=== PATIENT | male | born 1970 | race Caucasian/White ===

== ENCOUNTER 2017-08-03 07:53 | Emergency (ER) | payer SELFPAY ==
[2017-08-03] MEDS ORDERED: Cyclobenzaprine 10 MG Tab PO ONE (08:27)
[2017-08-03] MEDS ORDERED: HYDROmorphone 1 MG/ML Syringe IM ONE (08:27)
[2017-08-03] MEDS ORDERED: Ketorolac 60 MG/2 ML SDV IM ONE (08:27)
--- NOTE | 2017-08-03 08:32 | EDM.PDOC ---
ED HPI GENERAL MEDICAL PROBLEM - General Chief Complaint: Back Pain or Injury Stated Complaint: BACK PAIN Time Seen by Provider: 08/03/17 08:07 Source of Information: Reports: Patient History Limitations: Reports: No Limitations - History of Present Illness INITIAL COMMENTS - FREE TEXT/NARRATIVE: The patient presents with right lower back pain. This all started last week when he bent over to pickle maker a spoon. He went to the chiropractor twice without relief. He denies numbness or weakness. He has no bowel or bladder problems. He has never had back pain like this before. He has no fever, chills , cough, congestion, chest pain, abdominal pain, nausea or vomiting. Onset: Sudden Duration: Week(s): (1) Location: Reports: Back (right lower) Quality: Reports: Sharp Severity: Severe Improves with: Reports: Immobilization Worsens with: Reports: Movement Context: Reports: Activity (He was bending over to pickle maker a spoon) Associated Symptoms: Reports: No Other Symptoms Treatments DIRECTOR REHABILITATION PROGRAM: Reports: Cold Therapy, NSAIDS, Other (see below) Other Treatments DIRECTOR REHABILITATION PROGRAM: chiropractor Right Lower Back Pain Score (Numeric/FACES): 10 - Related Data Allergies Allergy/AdvReac Type Severity Reaction Status Date / Time No Known Allergies Allergy Verified 08/03/17 08:08 Home Meds: Home Meds Cyclobenzaprine [Flexeril] 10 mg PO TID PRN #20 tablet 08/03/17 [Rx] oxyCODONE HCl/Acetaminophen [Percocet 5-325 mg Tablet] 1 - 2 each PO Q6HR PRN # 20 tablet 08/03/17 [Rx] Past Medical History - Past Health History Medical/Surgical History: Denies Medical/Surgical History Social & Family History - Family History Family Medical History: Noncontributory - Tobacco Use Smoking Status *Q: Current Every Day Smoker Years of Tobacco use: 33 Packs/Tins Daily: 0.5 Second Hand Smoke Exposure: No - Caffeine Use Caffeine Use: Reports: Coffee - Recreational Drug Use Recreational Drug Use: No ED ROS GENERAL - Review of Systems Review Of Systems: See Below Constitutional: Reports: No Symptoms HEENT: Reports: No Symptoms Respiratory: Reports: No Symptoms Cardiovascular: Reports: No Symptoms Endocrine: Reports: No Symptoms GI/Abdominal: Reports: No Symptoms : Reports: No Symptoms Musculoskeletal: Reports: Back Pain (Right lower back) ED EXAM,LOWER BACK PAIN/INJURY - Physical Exam Exam: See Below Exam Limited By: No Limitations General Appearance: Alert, Mild Distress Ears: Normal External Exam Nose: Normal Inspection Head: Atraumatic, Normocephalic Neck: Normal Inspection Respiratory/Chest: No Respiratory Distress, Lungs Clear, Normal Breath Sounds Cardiovascular: Regular Rate, Rhythm, No Edema, No Murmur GI/Abdominal: Soft, Non-Tender, No Organomegaly, No Mass Back Exam: Other (Mild pain upon palpation to the right lower back) Extremities: Normal Inspection Neurological: Alert, No Motor/Sensory Deficits, Oriented x 3 Course - Vital Signs Last Recorded V/S: Last Vital Signs Temp 96.9 F 08/03/17 08:08 Pulse 77 08/03/17 08:08 Resp 18 08/03/17 08:08 BP 144/85 H 08/03/17 08:08 Pulse Ox 95 08/03/17 08:08 - Orders/Labs/Meds Orders: Active Orders 24 hr Category Date Time Status Lumbar Spine 2 or 3V [CR] Stat Exams 08/03/17 08:28 Taken Meds: Medications Discontinued Medications Generic Name Dose Route Start Last Admin Trade Name Freq PRN Reason Stop Dose Admin Cyclobenzaprine HCl 10 mg 08/03/17 08:27 08/03/17 08:48 Flexeril PO 08/03/17 08:28 10 mg ONETIME ONE Administration Hydromorphone HCl 1 mg 08/03/17 08:27 08/03/17 08:47 Dilaudid IM 08/03/17 08:28 1 mg ONETIME ONE Administration Ketorolac Tromethamine 60 mg 08/03/17 08:27 08/03/17 08:49 Toradol IM 08/03/17 08:28 60 mg ONETIME ONE Administration - Re-Assessments/Exams Free Text/Narrative Re-Assessment/Exam: 08/03/17 08:32 I ordered a shot of dilaudid 1mg IM and toradol 60mg IM. I also gave him some flexeril 10mg by mouth. 08/03/17 09:39 His x-ray shows some mild arthritis and there is a straitening of the normal curvature of his lumbar spine that may indicate muscle spasms. He feels a little better. I will give him some percocet and flexeril for the pain. He is still going to the chiropractor and I will have him follow up with Dr Phelan in our clinic. If he does not get better he may need an MRI. Departure - Departure Time of Disposition: 09:45 Disposition: Home, Self-Care 01 Condition: Good Clinical Impression: Low back pain Qualifiers: Chronicity: acute Back pain laterality: right Sciatica presence: without sciatica Qualified Code(s): M54.5 - Low back pain - Discharge Information Prescriptions: oxyCODONE HCl/Acetaminophen [Percocet 5-325 mg Tablet] 1 - 2 each PO Q6HR PRN # 20 tablet PRN Reason: Pain Cyclobenzaprine [Flexeril] 10 mg PO TID PRN #20 tablet PRN Reason: Pain Referrals: PCP,None [Primary Care Provider] - Dorothy Phelan MD [Physician] - 1 Week Forms: ED Department Discharge, ED Return to Work/School Form Additional Instructions: Use ice or heat on your back. Which ever one feels better. Take the flexeril and percocet for pain. Get rest but do not lay in bed or on the couch all day. Try to move around and keep active. Follow up with Dr Phelan next week if not better. Keep seeing your chiropractor. Please return if you are worse. - My Orders Last 24 Hours: My Active Orders 08/03/17 08:28 Lumbar Spine 2 or 3V [CR] Stat - Assessment/Plan Last 24 Hours: My Active Orders 08/03/17 08:28 Lumbar Spine 2 or 3V [CR] Stat
--- NOTE | 2017-08-04 07:05 | CR ---
Lumbar spine: AP, lateral and coned-down lateral views centered to the lumbosacral junction were obtained. Mild disc space narrowing is noted at L5-S1. Other disc spaces are maintained. Scattered endplate osteophytes are seen. Pedicles as well as transverse and spinous processes are intact. No fracture or subluxation is seen. Sacroiliac joints are within normal limits. Straightening of the normal lumbar lordotic curve is seen. Impression: 1. Mild degenerative change as noted above. 2. Straightening of the lumbar lordotic curve which can be developmental or represent muscle spasm. Diagnostic code #2 MTDD
== END 2017-08-03 10:00 | disposition home or self-care (01) ==
LOC: JD.ED 07:53
DX: M54.5 Low back pain (principal); F17.210 Nicotine dependence, cigarettes, uncomplicated
CPT/HCPCS: 72100; 96372; 99284; A9270; J1170; J1885; 99283

== ENCOUNTER 2018-02-26 03:55 | Inpatient (IN) | payer SELFPAY ==
[2018-02-26] MEDS ORDERED: Ondansetron 4 MG/2 ML SDV IVPUSH ONE (04:30)
[2018-02-26] MEDS ORDERED: Sodium Chloride 0.9% 1,000 ML IV ONE (04:30)
--- NOTE | 2018-02-26 04:47 | EDM.PDOCBH ---
ED HPI GENERAL MEDICAL PROBLEM - General Chief Complaint: Drug or Alcohol Abuse Stated Complaint: VOMITING BLOOD IN STOOL Time Seen by Provider: 02/26/18 04:09 Source of Information: Reports: Patient, Family () History Limitations: Reports: No Limitations - History of Present Illness INITIAL COMMENTS - FREE TEXT/NARRATIVE: The patient states that he is a chronic daily alcoholic, typically drinking 6-9 shots of whiskey and 8 strong beers over the course of a day, daily, for many years. His last drink was yesterday morning, 02/25/2018, after which he decided to go to . He now presents feeling shaky since yesterday afternoon, tachycardic (his heart rate is 95 here in the ED), restless and anxious tonight , and unable to sleep. He states that his eyes seemed to be "bouncing" tonight. He states that he has been vomiting every morning for the past 2 nights, then developed dry heaves tonight. He also reports that he has had bright red blood in his stools for the past 2 months. He has a chronic "smoker's" cough. No recent fever. The patient has never been to inpatient treatment. He had been in outpatient treatment many years ago. He has had 2 DUIs, but no other run-ins with the law. He has never been hospitalized due to his drinking. No history of DTs. Here in the ED, the patient's BP is somewhat elevated at 151/90, but he is otherwise hemodynamically stable and afebrile. The patient does not have a PCP, and does not recall if he has ever had a general physical examination. - Related Data Allergies Allergy/AdvReac Type Severity Reaction Status Date / Time No Known Allergies Allergy Verified 02/26/18 04:07 Home Meds: Home Meds . [No Known Home Meds] 02/26/18 [History] Past Medical History Psychiatric History: Reports: Addiction (alcohol) - Past Surgical History HEENT Surgical History: Reports: Oral Surgery ([place] teeth extraction) Social & Family History - Family History Family Medical History: Noncontributory - Tobacco Use Smoking Status *Q: Current Every Day Smoker Years of Tobacco use: 35 Packs/Tins Daily: 1 - Caffeine Use Caffeine Use: Reports: None - Alcohol Use Days Per Week of Alcohol Use: 7 Number of Drinks Per Day: 17 Total Drinks Per Week: 119 - Recreational Drug Use Recreational Drug Use: No - Living Situation & Occupation Living situation: Reports: , with Spouse Occupation: Employed ([employer]) ED ROS GENERAL - Review of Systems Review Of Systems: ROS reveals no pertinent complaints other than HPI. ED EXAM, BEHAVIORAL HEALTH - Physical Exam Exam: See Below Exam Limited By: No Limitations General Appearance: Alert, WD/WN, No Apparent Distress, Anxious (Keeps eyes closed. Is likely hyperventilating.) Eye Exam: Bilateral Eye: Normal Inspection Ears: Normal External Exam, Hearing Grossly Normal Nose: Normal Inspection, No Blood Throat/Mouth: Normal Inspection, Normal Lips, Normal Voice, No Airway Compromise Head: Atraumatic, Normocephalic Neck: Normal Inspection, Full Range of Motion Respiratory/Chest: No Respiratory Distress, Lungs Clear, Normal Breath Sounds, No Accessory Muscle Use Cardiovascular: Normal Peripheral Pulses, Regular Rate, Rhythm, No Edema, No Gallop, No JVD, No Murmur, No Rub GI/Abdominal: Normal Bowel Sounds, Soft, Non-Tender, No Organomegaly, No Distention, No Abnormal Bruit, No Mass (Male) Exam: Deferred Rectal (Males) Exam: Deferred Back Exam: Normal Inspection, Full Range of Motion, NT Extremities: Normal Inspection, Normal Range of Motion, No Pedal Edema, Normal Capillary Refill Neurological: Alert, Normal Cognition, No Motor/Sensory Deficits, Oriented x 3 Psychiatric: Other (Anxious) Skin Exam: Warm, Dry, Intact, Normal color, No rash EKG INTERPRETATION EKG Date: 02/26/18 Time: 04:37 Rhythm: NSR Rate (Beats/Min): 81 Berry: Normal P-Wave: Present QRS: Normal (Voltage c/w LVH) ST-T: Normal QT: Normal Comparison: NA - No Prior EKG COURSE, BEHAVIORAL HEALTH COMP - Course Vital Signs: Last Vital Signs Temp 36.6 C 02/26/18 04:05 Pulse 95 02/26/18 04:05 Resp 16 02/26/18 04:05 BP 151/90 H 02/26/18 04:05 Pulse Ox 99 02/26/18 04:05 Orthostatic Blood Pressure [ 132/91 Standing] Orthostatic Blood Pressure [ 148/70 Supine] Orders, Labs, Meds: Active Orders 24 hr Category Date Time Status EKG Documentation Completion [RC] STAT Care 02/26/18 04:28 Active Orthostatic Vital Signs [RC] STAT Care 02/26/18 04:28 Active Chest 1V Frontal [CR] Stat Exams 02/26/18 04:27 Taken DRUG SCREEN, URINE [URCHEM] Stat Lab 02/26/18 05:37 Ordered Magnesium Sulfate/Water [Magnesium Sulfate 2 GM in Med 02/26/18 06:07 Active Water 50 ML] 2 gm Premix Bag 1 bag IV ONETIME Medication Orders Magnesium Sulfate 2 gm/ Premix 50 mls @ 50 mls/hr IV ONETIME ONE Stop: 02/26/18 07:06 Last Admin: 02/26/18 06:26 Dose: 50 mls/hr Laboratory Tests 02/26/18 02/26/18 02/26/18 Range/Units 04:45 04:45 04:45 WBC 6.06 (4.23-9.07) K/mm3 RBC 4.49 L (4.63-6.08) M/mm3 Hgb 13.8 (13.7-17.5) gm/L Hct 40.6 (40.1-51.0) % MCV 90.4 (79.0-92.2) fl MCH 30.7 (25.7-32.2) pg MCHC 34.0 (32.2-35.5) g/dl RDW Std Deviation 40.9 (35.1-43.9) fL Plt Count 252 (163-337) K/mm3 MPV 8.4 L (9.4-12.3) fl Neutrophils % (Manual) 67 H (40-60) % Band Neutrophils % 0 (0-10) % Lymphocytes % (Manual) 22 (20-40) % Atypical Lymphs % 0 % Monocytes % (Manual) 10 (2-10) % Eosinophils % (Manual) 0 L (0.8-7.0) % Basophils % (Manual) 1 (0.2-1.2) Platelet Estimate Adequate Plt Morphology Comment Normal RBC Morph Comment Normal Puncture Site ABG pH (7.35-7.45) ABG pCO2 (35.0-45.0) mmHg ABG pO2 (80.0-100.0) mmHg ABG HCO3 (22.0-26.0) meq/L ABG O2 Saturation (96.0-97.0) % ABG Base Excess (-2-2.0) A-a Gradient mmHg O2 Delivery Device FiO2 (21.00-100.00) % Sodium 137 (136-145) mEq/L Potassium 3.3 L (3.5-5.1) mEq/L Chloride 101 (98-107) mEq/L Carbon Dioxide 24 (21-32) mEq/L Anion Gap 15.3 H (5-15) BUN 8 (7-18) mg/dL Creatinine 1.0 (0.7-1.3) mg/dL Est Cr Clr Drug Dosing 90.34 mL/min Estimated GFR (MDRD) > 60 (>60) mL/min BUN/Creatinine Ratio 8.0 L (14-18) Glucose 116 H (74-106) mg/dL Lactic Acid 1.5 (0.4-2.0) mmol/L Calcium 8.8 (8.5-10.1) mg/dL Magnesium 1.3 L (1.8-2.4) mg/dl Total Bilirubin 0.4 (0.2-1.0) mg/dL AST 118 H (15-37) U/L ALT 74 H (16-63) U/L Alkaline Phosphatase 148 H (46-116) U/L Total Protein 7.6 (6.4-8.2) g/dl Albumin 3.8 (3.4-5.0) g/dl Globulin 3.8 gm/dL Albumin/Globulin Ratio 1.0 (1-2) Urine Opiates Screen (NEGATIVE) Ur Buprenorphine Scrn (NEGATIVE) Ur Oxycodone Screen (NEGATIVE) Urine Methadone Screen (NEGATIVE) Ur Propoxyphene Screen (NEGATIVE) Ur Barbiturates Screen (NEGATIVE) Ur Tricyclics Screen (NEGATIVE) Ur Phencyclidine Scrn (NEGATIVE) Ur Amphetamine Screen (NEGATIVE) U Methamphetamines Scrn (NEGATIVE) U Benzodiazepines Scrn (NEGATIVE) U Cocaine Metab Screen (NEGATIVE) U Marijuana (THC) Screen (NEGATIVE) Ethyl Alcohol 0.00 (0.00) gm% 02/26/18 02/26/18 Range/Units 04:57 05:37 WBC (4.23-9.07) K/mm3 RBC (4.63-6.08) M/mm3 Hgb (13.7-17.5) gm/L Hct (40.1-51.0) % MCV (79.0-92.2) fl MCH (25.7-32.2) pg MCHC (32.2-35.5) g/dl RDW Std Deviation (35.1-43.9) fL Plt Count (163-337) K/mm3 MPV (9.4-12.3) fl Neutrophils % (Manual) (40-60) % Band Neutrophils % (0-10) % Lymphocytes % (Manual) (20-40) % Atypical Lymphs % % Monocytes % (Manual) (2-10) % Eosinophils % (Manual) (0.8-7.0) % Basophils % (Manual) (0.2-1.2) Platelet Estimate Plt Morphology Comment RBC Morph Comment Puncture Site Lt radial ABG pH 7.55 H (7.35-7.45) ABG pCO2 26.6 L (35.0-45.0) mmHg ABG pO2 78.0 L (80.0-100.0) mmHg ABG HCO3 23.2 (22.0-26.0) meq/L ABG O2 Saturation 97.5 H (96.0-97.0) % ABG Base Excess 2.1 H (-2-2.0) A-a Gradient 24 mmHg O2 Delivery Device Room air FiO2 21.00 (21.00-100.00) % Sodium (136-145) mEq/L Potassium (3.5-5.1) mEq/L Chloride (98-107) mEq/L Carbon Dioxide (21-32) mEq/L Anion Gap (5-15) BUN (7-18) mg/dL Creatinine (0.7-1.3) mg/dL Est Cr Clr Drug Dosing mL/min Estimated GFR (MDRD) (>60) mL/min BUN/Creatinine Ratio (14-18) Glucose (74-106) mg/dL Lactic Acid (0.4-2.0) mmol/L Calcium (8.5-10.1) mg/dL Magnesium (1.8-2.4) mg/dl Total Bilirubin (0.2-1.0) mg/dL AST (15-37) U/L ALT (16-63) U/L Alkaline Phosphatase (46-116) U/L Total Protein (6.4-8.2) g/dl Albumin (3.4-5.0) g/dl Globulin gm/dL Albumin/Globulin Ratio (1-2) Urine Opiates Screen Negative (NEGATIVE) Ur Buprenorphine Scrn Negative (NEGATIVE) Ur Oxycodone Screen Negative (NEGATIVE) Urine Methadone Screen Negative (NEGATIVE) Ur Propoxyphene Screen Negative (NEGATIVE) Ur Barbiturates Screen Negative (NEGATIVE) Ur Tricyclics Screen Negative (NEGATIVE) Ur Phencyclidine Scrn Negative (NEGATIVE) Ur Amphetamine Screen Negative (NEGATIVE) U Methamphetamines Scrn Negative (NEGATIVE) U Benzodiazepines Scrn Negative (NEGATIVE) U Cocaine Metab Screen Negative (NEGATIVE) U Marijuana (THC) Screen Presumptive positive H (NEGATIVE) Ethyl Alcohol (0.00) gm% Medications Generic Name Dose Route Start Last Admin Trade Name Freq PRN Reason Stop Dose Admin Magnesium Sulfate 2 gm/ Premix 50 mls @ 50 mls/hr 02/26/18 06:07 02/26/18 06: 26 IV 02/26/18 07:06 50 mls/hr ONETIME ONE Administration Discontinued Medications Generic Name Dose Route Start Last Admin Trade Name Freq PRN Reason Stop Dose Admin Sodium Chloride 1,000 mls @ 999 mls/hr 02/26/18 04:30 02/26/18 04:50 Normal Saline IV 02/26/18 05:30 999 mls/hr ONETIME ONE Administration Lorazepam 1 mg 02/26/18 05:22 02/26/18 05:30 Ativan IVPUSH 02/26/18 05:23 1 mg ONETIME STA Administration Ondansetron HCl 4 mg 02/26/18 04:30 02/26/18 04:51 Zofran IVPUSH 02/26/18 04:31 4 mg ONETIME ONE Administration Medical Clearance: 02/26/18 05:15 The patient is not quite orthostatic, but close. I have ordered 1 L normal saline bolus. The patient's ABG represents an acute respiratory alkalosis. I have ordered 1 mg IV Ativan. Portable chest radiograph reviewed. The x-ray source appears to have been placed excessively cephalad, creating a hathaway-shaped chest radiograph. Cardiac silhouette is within normal limits. No pulmonary vascular congestion. No pleural effusions. No focal infiltrate. No pneumothorax. Formal read per the Radiologist pending. 02/26/18 06:06 The patient's potassium is only mildly depressed at 3.3, however, his magnesium level is significantly depressed at 1.3. I will order a 2 g magnesium rider. The issues urine drug screen is positive for marijuana. I'm going to recommend admission to the hospital for treatment of alcohol withdrawal. 02/26/18 06:14 The above was discussed with the patient and his . Following 1 mg of Ativan , he is now quite calm. They are agreeable to having the patient admitted. 02/26/18 06:[address] Amezquita at 06:14. He accepts the patient for admission to the ICU. Departure - Departure Time of Disposition: 06:16 Disposition: Admitted As Inpatient 65 Condition: Fair Clinical Impression: Alcohol withdrawal, Alcoholism, Hypomagnesemia, Acute respiratory alkalosis - Discharge Information *PRESCRIPTION DRUG MONITORING PROGRAM REVIEWED*: Not Applicable *COPY OF PRESCRIPTION DRUG MONITORING REPORT IN PATIENT [place]: Not Applicable - My Orders Last 24 Hours: My Active Orders 02/26/18 04:27 Chest 1V Frontal [CR] Stat 02/26/18 04:28 EKG Documentation Completion [RC] STAT Orthostatic Vital Signs [RC] STAT 02/26/18 05:37 DRUG SCREEN, URINE [URCHEM] Stat 02/26/18 06:07 Magnesium Sulfate/Water [Magnesium Sulfate 2 GM in Water 50 ML] 2 gm Premix Bag 1 bag IV ONETIME - Assessment/Plan Last 24 Hours: My Active Orders 02/26/18 04:27 Chest 1V Frontal [CR] Stat 02/26/18 04:28 EKG Documentation Completion [RC] STAT Orthostatic Vital Signs [RC] STAT 02/26/18 05:37 DRUG SCREEN, URINE [URCHEM] Stat 02/26/18 06:07 Magnesium Sulfate/Water [Magnesium Sulfate 2 GM in Water 50 ML] 2 gm Premix Bag 1 bag IV ONETIME
[2018-02-26] MEDS ORDERED: LORazepam 2 MG/ML SDV IVPUSH STA (05:22)
[2018-02-26] MEDS ORDERED: Magnesium Sulfate/Water 2 GM in Premix Bag 1 BAG IV ONE (06:07)
[2018-02-26] MEDS ORDERED: LORazepam 2 MG/ML SDV IVPUSH PRN (07:10)
[2018-02-26] MEDS ORDERED: Metoprolol Tartrate 5 MG/5 ML SDV IVPUSH PRN (07:10)
[2018-02-26] MEDS ORDERED: hydrALAZINE 20 MG/ML SDV IVPUSH PRN (07:10)
[2018-02-26] MEDS ORDERED: LORazepam 2 MG/ML SDV IV PRN (07:11)
[2018-02-26] MEDS ORDERED: Ondansetron 4 MG/2 ML SDV IV PRN (07:11)
[2018-02-26] MEDS ORDERED: cloNIDine 0.1 MG Tab PO PRN (07:11)
[2018-02-26] MEDS ORDERED: Bisacodyl 5 MG Tab PO PRN (07:11)
[2018-02-26] MEDS ORDERED: Docusate Sodium 100 MG Cap PO PRN (07:11)
[2018-02-26] MEDS ORDERED: chlordiazePOXIDE 25 MG Cap PO PRN (07:11)
[2018-02-26] MEDS ORDERED: oxyCODONE 5 MG Tab PO PRN (07:11)
[2018-02-26] MEDS ORDERED: Haloperidol Lactate 5 MG/ML SDV IM PRN (07:11)
[2018-02-26] MEDS ORDERED: HYDROmorphone 0.5 MG/0.5 ML SYRINGE IVPUSH PRN (07:11)
[2018-02-26] MEDS ORDERED: Ibuprofen 600 MG Tab PO PRN (07:11)
[2018-02-26] MEDS ORDERED: Polyethylene Glycol 3350 Powder 17 GM Packet PO PRN (07:11)
[2018-02-26] MEDS ORDERED: Promethazine 12.5 MG in Sodium Chloride 0.9% 50 ML IV PRN (07:11)
[2018-02-26] MEDS ORDERED: Albuterol/Ipratropium 3.0-0.5 MG/3 ML Neb Soln NEB PRN (07:11)
[2018-02-26] MEDS ORDERED: Multivitamins,Therapeutic Tab PO SCH (09:00)
[2018-02-26] MEDS ORDERED: Nicotine 21 MG/24 Hr Patch TRDERM PRN (09:00)
[2018-02-26] MEDS ORDERED: Pantoprazole 40 MG Vial IV ONE (09:00)
[2018-02-26] MEDS ORDERED: Folic Acid 1 MG Tab PO SCH (09:00)
[2018-02-26] MEDS ORDERED: QUEtiapine 25 MG Tab PO ONE (09:10)
[2018-02-26] MEDS: Topiramate 25 MG Tab PO SCH ×2 (09:28→20:07)
[2018-02-26] MEDS ORDERED: Thiamine 100 MG in Sodium Chloride 0.9% 50 ML IV ONE (09:30)
[2018-02-26] MEDS ORDERED: Potassium Chloride 20 MEQ Tab.ER PO ONE (10:00)
--- NOTE | 2018-02-26 10:02 | PCM.HP ---
H&P History of Present Illness - General Date of Service: 02/26/18 Admit Problem/Dx: Admission Diagnosis/Problem Admission Diagnosis/Problem Substance abuse Source of Information: Patient, Family, Provider, Significant Other History Limitations: Reports: No Limitations - History of Present Illness Initial Comments - Free Text/Narative: This is a 47 yo white male with no past medical hx/o who presented to the emergency department with complaints of tremor, tachycardia, restlessness, anxiety, and insomnia. He also states he has been vomiting every morning for the past 2 nights then developed dry heaving afterwards. He also has had rectal bleed for the past 2 months. He denies having history of constipation. Patient carries a history of chronic alcohol dependence. He used to drink mild- moderate but for the past couple of months he has been drinking more: 6-9 shots of whiskey along with 5-6 beers of a"tall hurricane". According to his , they have been thru "a lot stress" starting for the past couple months. Patient denies any history of anxiety, depression or PTSD. He smokes one pack a day but denies illicit drug use. Patient started drinking when he was 14-15 years of age. He has been in outpatient treatment in the past but never inpatient. He was never hospitalized for anything related to alcohol up until now. No history of DTs, Alcohol Seizures, Withdrawals, or Hallucinations. On presentation to the emergency department, the patient was in severely alcohol withdrawal. His initial workup in the emergency department shows a CBC remarkable for RBC of 4.49, MPV of 8.4, neutrophils of 67%, and lymphocytes of 0%. His ABG shows pH of 7.55, PCO2 of26.6, PO2 of 78, HCO3 of 23.2, and O2 saturation of 97.5% on room air. His chemistry is significant for potassium of 3.3, anion gap of 15.3, glucose of 116, magnesium of 1.3, AST of 118, ALT of 74, and alkaline phosphatase of 148. His UDS is positive for marijuana. His JOHN level is 0. Patient is being admitted for medical treatment of alcohol withdrawal symptoms. He is full code. - Related Data Allergies/Adverse Reactions: Allergies Allergy/AdvReac Type Severity Reaction Status Date / Time No Known Allergies Allergy Verified 02/26/18 08:37 Home Medications: Home Meds . [No Known Home Meds] 02/26/18 [History] Past Medical History - Past Health History Medical/Surgical History: Denies Medical/Surgical History Psychiatric History: Reports: Addiction - Past Surgical History HEENT Surgical History: Reports: Oral Surgery Social & Family History - Family History Family Medical History: Noncontributory - Tobacco Use Smoking Status *Q: Current Every Day Smoker Years of Tobacco use: 35 Packs/Tins Daily: 1 Used Tobacco, but Quit: No Second Hand Smoke Exposure: Yes - Caffeine Use Caffeine Use: Reports: Coffee - Alcohol Use Days Per Week of Alcohol Use: 7 Number of Drinks Per Day: 4 Total Drinks Per Week: 28 - Recreational Drug Use Recreational Drug Use: No Drug Use in Last 12 Months: No - Living Situation & Occupation Living situation: Reports: , with Spouse Occupation: Employed ([employer]) H&P Review of Systems - Review of Systems: Review Of Systems: ROS reveals no pertinent complaints other than HPI. Exam - Exam Exam: See Below - Vital Signs Vital Signs: Last Vital Signs Temp 36.4 C 02/26/18 07:24 Pulse 84 02/26/18 08:01 Resp 16 02/26/18 08:01 BP 148/85 H 02/26/18 08:00 Pulse Ox 96 02/26/18 08:01 Orthostatic Blood Pressure [ 132/91 Standing] Orthostatic Blood Pressure [ 148/70 Supine] Weight: 76.022 kg - Exam General: Alert, Cooperative, Moderate Distress HEENT: Conjunctiva Clear, EACs Clear, Mucosa Moist & [place], Nares Patent, Normal Nasal Septum, Pupils Equal, Pupils Reactive. No: EOMI Neck: Supple, Trachea Midline, Full Range of Motion Lungs: Normal Respiratory Effort, Decreased Breath Sounds Cardiovascular: Regular Rate, Regular Rhythm GI/Abdominal Exam: Normal Bowel Sounds, Soft, Non-Tender, No Organomegaly, No Distention, No Abnormal Bruit, No Mass (Male) Exam: Deferred Rectal (Males) Exam: Deferred Back Exam: Normal Inspection, Full Range of Motion Extremities: Normal Inspection, Normal Range of Motion, Non-Tender, No Pedal Edema, Normal Capillary Refill Peripheral Pulses: 3+: Posterior Tibial (L), Posterior Tibial (R), Dorsalis Pedis (L), Dorsalis Pedis (R) Skin: Warm, Dry, Intact, Other (Diffuse skin tattoos) Neuro Extensive - Mental Status: Normal Mood/Affect, Normal Cognition, Memory Intact, Nl Response to Commands Neuro Extensive - Motor, Sensory, Reflexes: CN II-XII Intact (limited due to unsteadiness) Psychiatric: Alert, Anxious, Withdrawal Symptoms. No: Agitated, Suicidal Ideation, Hallucinations - Patient Data Lab Results Last 24 hrs: Laboratory Results - last 24 hr 02/26/18 02/26/18 02/26/18 Range/Units 04:45 04:45 04:45 WBC 6.06 (4.23-9.07) K/mm3 RBC 4.49 L (4.63-6.08) M/mm3 Hgb 13.8 (13.7-17.5) gm/L Hct 40.6 (40.1-51.0) % MCV 90.4 (79.0-92.2) fl MCH 30.7 (25.7-32.2) pg MCHC 34.0 (32.2-35.5) g/dl RDW Std Deviation 40.9 (35.1-43.9) fL Plt Count 252 (163-337) K/mm3 MPV 8.4 L (9.4-12.3) fl Neutrophils % (Manual) 67 H (40-60) % Band Neutrophils % 0 (0-10) % Lymphocytes % (Manual) 22 (20-40) % Atypical Lymphs % 0 % Monocytes % (Manual) 10 (2-10) % Eosinophils % (Manual) 0 L (0.8-7.0) % Basophils % (Manual) 1 (0.2-1.2) Platelet Estimate Adequate Plt Morphology Comment Normal RBC Morph Comment Normal Puncture Site ABG pH (7.35-7.45) ABG pCO2 (35.0-45.0) mmHg ABG pO2 (80.0-100.0) mmHg ABG HCO3 (22.0-26.0) meq/L ABG O2 Saturation (96.0-97.0) % ABG Base Excess (-2-2.0) A-a Gradient mmHg O2 Delivery Device FiO2 (21.00-100.00) % Sodium 137 (136-145) mEq/L Potassium 3.3 L (3.5-5.1) mEq/L Chloride 101 (98-107) mEq/L Carbon Dioxide 24 (21-32) mEq/L Anion Gap 15.3 H (5-15) BUN 8 (7-18) mg/dL Creatinine 1.0 (0.7-1.3) mg/dL Est Cr Clr Drug Dosing 90.34 mL/min Estimated GFR (MDRD) > 60 (>60) mL/min BUN/Creatinine Ratio 8.0 L (14-18) Glucose 116 H (74-106) mg/dL Lactic Acid 1.5 (0.4-2.0) mmol/L Calcium 8.8 (8.5-10.1) mg/dL Magnesium 1.3 L (1.8-2.4) mg/dl Total Bilirubin 0.4 (0.2-1.0) mg/dL AST 118 H (15-37) U/L ALT 74 H (16-63) U/L Alkaline Phosphatase 148 H (46-116) U/L Total Protein 7.6 (6.4-8.2) g/dl Albumin 3.8 (3.4-5.0) g/dl Globulin 3.8 gm/dL Albumin/Globulin Ratio 1.0 (1-2) Urine Opiates Screen (NEGATIVE) Ur Buprenorphine Scrn (NEGATIVE) Ur Oxycodone Screen (NEGATIVE) Urine Methadone Screen (NEGATIVE) Ur Propoxyphene Screen (NEGATIVE) Ur Barbiturates Screen (NEGATIVE) Ur Tricyclics Screen (NEGATIVE) Ur Phencyclidine Scrn (NEGATIVE) Ur Amphetamine Screen (NEGATIVE) U Methamphetamines Scrn (NEGATIVE) U Benzodiazepines Scrn (NEGATIVE) U Cocaine Metab Screen (NEGATIVE) U Marijuana (THC) Screen (NEGATIVE) Ethyl Alcohol 0.00 (0.00) gm% 02/26/18 02/26/18 Range/Units 04:57 05:37 WBC (4.23-9.07) K/mm3 RBC (4.63-6.08) M/mm3 Hgb (13.7-17.5) gm/L Hct (40.1-51.0) % MCV (79.0-92.2) fl MCH (25.7-32.2) pg MCHC (32.2-35.5) g/dl RDW Std Deviation (35.1-43.9) fL Plt Count (163-337) K/mm3 MPV (9.4-12.3) fl Neutrophils % (Manual) (40-60) % Band Neutrophils % (0-10) % Lymphocytes % (Manual) (20-40) % Atypical Lymphs % % Monocytes % (Manual) (2-10) % Eosinophils % (Manual) (0.8-7.0) % Basophils % (Manual) (0.2-1.2) Platelet Estimate Plt Morphology Comment RBC Morph Comment Puncture Site Lt radial ABG pH 7.55 H (7.35-7.45) ABG pCO2 26.6 L (35.0-45.0) mmHg ABG pO2 78.0 L (80.0-100.0) mmHg ABG HCO3 23.2 (22.0-26.0) meq/L ABG O2 Saturation 97.5 H (96.0-97.0) % ABG Base Excess 2.1 H (-2-2.0) A-a Gradient 24 mmHg O2 Delivery Device Room air FiO2 21.00 (21.00-100.00) % Sodium (136-145) mEq/L Potassium (3.5-5.1) mEq/L Chloride (98-107) mEq/L Carbon Dioxide (21-32) mEq/L Anion Gap (5-15) BUN (7-18) mg/dL Creatinine (0.7-1.3) mg/dL Est Cr Clr Drug Dosing mL/min Estimated GFR (MDRD) (>60) mL/min BUN/Creatinine Ratio (14-18) Glucose (74-106) mg/dL Lactic Acid (0.4-2.0) mmol/L Calcium (8.5-10.1) mg/dL Magnesium (1.8-2.4) mg/dl Total Bilirubin (0.2-1.0) mg/dL AST (15-37) U/L ALT (16-63) U/L Alkaline Phosphatase (46-116) U/L Total Protein (6.4-8.2) g/dl Albumin (3.4-5.0) g/dl Globulin gm/dL Albumin/Globulin Ratio (1-2) Urine Opiates Screen Negative (NEGATIVE) Ur Buprenorphine Scrn Negative (NEGATIVE) Ur Oxycodone Screen Negative (NEGATIVE) Urine Methadone Screen Negative (NEGATIVE) Ur Propoxyphene Screen Negative (NEGATIVE) Ur Barbiturates Screen Negative (NEGATIVE) Ur Tricyclics Screen Negative (NEGATIVE) Ur Phencyclidine Scrn Negative (NEGATIVE) Ur Amphetamine Screen Negative (NEGATIVE) U Methamphetamines Scrn Negative (NEGATIVE) U Benzodiazepines Scrn Negative (NEGATIVE) U Cocaine Metab Screen Negative (NEGATIVE) U Marijuana (THC) Screen Presumptive positive H (NEGATIVE) Ethyl Alcohol (0.00) gm% Result Diagrams: 02/27/18 06:11 02/27/18 06:11 EKG INTERPRETATION EKG Date: 02/26/18 Time: 04:37 Rhythm: NSR Rate (Beats/Min): 81 [place]: Normal P-Wave: Present QRS: Normal ST-T: Normal QT: Normal Comparison: NA - No Prior EKG Problem List Initiated/Reviewed/Updated: Yes Orders Last 24hrs: Active Orders 24 hr Category Date Time Status Admission Status [Patient Status] [ADT] Routine ADT 02/26/18 06:50 Active CIWAA Assessment [RC] Q1HR Care 02/26/18 07:11 Active Cardiac Monitoring [RC] CONTINUOUS Care 02/26/18 07:12 Active EKG Documentation Completion [RC] STAT Care 02/26/18 04:28 Active Notify Provider Consults [RC] ASDIRECTED Care 02/26/18 07:15 Active Notify Provider [RC] PRN Care 02/26/18 07:11 Active Oxygen Therapy [RC] PRN Care 02/26/18 07:11 Active RT Aerosol Therapy [RC] ASDIRECTED Care 02/26/18 07:13 Active Up ad Sindi [RC] ASDIRECTED Care 02/26/18 07:11 Active VTE/DVT Education [RC] ,21 Care 02/26/18 07:11 Active Vital Signs [RC] Q4H Care 02/26/18 07:11 Active Consult for Substance Abuse [CONS] Routine Cons 02/26/18 09:02 Active Consult to Case Management [CONS] Routine Cons 02/26/18 07:11 Active Consult to Physician [CONS] Routine Cons 02/26/18 07:11 Active Consult to Grain Trimmer [CONS] Routine Cons 02/26/18 07:11 Active Consult to Spiritual Care [CONS] Routine Cons 02/26/18 07:11 Active Regular Diet [DIET] Diet 02/26/18 Breakfast Active Chest 1V Frontal [CR] Stat Exams 02/26/18 04:27 Taken CBC WITH AUTO DIFF [HEME] AM Lab 02/27/18 05:11 Ordered CBC WITH AUTO DIFF [HEME] AM Lab 02/28/18 05:11 Ordered CBC WITH AUTO DIFF [HEME] AM Lab 03/01/18 05:11 Ordered CBC WITH AUTO DIFF [HEME] AM Lab 03/02/18 05:11 Ordered COMPREHENSIVE METABOLIC PN,CMP [CHEM] AM Lab 02/27/18 05:11 Ordered COMPREHENSIVE METABOLIC PN,CMP [CHEM] AM Lab 02/28/18 05:11 Ordered COMPREHENSIVE METABOLIC PN,CMP [CHEM] AM Lab 03/01/18 05:11 Ordered DRUG SCREEN, URINE [URCHEM] Stat Lab 02/26/18 05:37 Ordered MAGNESIUM [CHEM] AM Lab 02/27/18 05:11 Ordered MAGNESIUM [CHEM] AM Lab 02/28/18 05:11 Ordered MAGNESIUM [CHEM] AM Lab 03/01/18 05:11 Ordered Albuterol/Ipratropium [DuoNeb 3.0-0.5 MG/3 ML] Med 02/26/18 07:11 Active 3 ml NEB Q4H PRN Bisacodyl [Dulcolax] Med 02/26/18 07:11 Active 5 mg PO DAILY PRN Docusate Sodium [Colace] Med 02/26/18 07:11 Active 100 mg PO BID PRN Docusate Sodium/Sennosides [Senna Plus] Med 02/26/18 07:11 Active 1 tab PO BID PRN Famotidine [Pepcid] Med 02/26/18 21:00 Active 20 mg PO Q12H Folic Acid Med 02/26/18 09:00 Active 1 mg PO DAILY HYDROmorphone [Dilaudid] Med 02/26/18 07:11 Active 0.25 mg IVPUSH Q2H PRN Haloperidol Lactate [Haldol] Med 02/26/18 07:11 Active 2 mg IM Q4H PRN Ibuprofen [Motrin] Med 02/26/18 07:11 Active 600 mg PO Q6H PRN LORazepam [Ativan] Med 02/26/18 07:11 Active 1 - 3 mg IV Q6H PRN LORazepam [Ativan] Med 02/26/18 07:10 Active 2 mg IVPUSH Q4H PRN Magnesium Rep Pharmacy to Dose [Pharmacy to Dose - Med 02/26/18 07:15 Active Magnesium Replacement] 0 dose .XX ASDIRECTED PRN Metoprolol Tartrate [Lopressor] Med 02/26/18 07:10 Active 5 mg IVPUSH Q4H PRN Multivitamins,Therapeutic [Thera] Med 02/26/18 09:00 Active 1 each PO DAILY Nicotine [Habitrol] Med 02/26/18 09:00 Active 21 mg TRDERM DAILY PRN Ondansetron [Zofran] Med 02/26/18 07:11 Active 4 mg IV Q6H PRN Polyethylene Glycol 3350 [MiraLAX] Med 02/26/18 07:11 Active 17 gm PO DAILY PRN Potassium Rep Pharmacy to Dose [Pharmacy to Dose - Med 02/26/18 07:15 Active Potassium Replacement] 0 dose .XX ASDIRECTED PRN Promethazine [Phenergan] 12.5 mg Med 02/26/18 07:11 Active Sodium Chloride 0.9% [Normal Saline] 50 ml IV Q6H QUEtiapine [SEROquel] Med 02/26/18 21:00 Active 50 mg PO BEDTIME Remove Patch Med 02/27/18 09:00 Active 0 ea TRDERM DAILY Sodium Chloride 0.9% [Normal Saline] 1,000 ml Med 02/26/18 09:45 Active IV ASDIRECTED Thiamine [Vitamin B-1] Med 02/27/18 09:00 Active 100 mg PO DAILY Topiramate [Topamax] Med 02/26/18 09:00 Active 25 mg PO BID chlordiazePOXIDE [Librium] Med 02/26/18 07:11 Active 25 mg PO Q8H PRN cloNIDine [Catapres] Med 02/26/18 07:11 Active 0.1 mg PO Q4H PRN hydrALAZINE [Apresoline] Med 02/26/18 07:10 Active 20 mg IVPUSH Q4H PRN oxyCODONE Med 02/26/18 07:11 Active 5 mg PO Q4H PRN Seizure Precautions [OM.PC] Routine Oth 02/26/18 07:11 Ordered Sequential Compression Device [OM.PC] Per Unit Routine Oth 02/26/18 07:12 Ordered Resuscitation Status Routine Resus Stat 02/26/18 07:11 Ordered Medication Orders Albuterol/Ipratropium (Duoneb 3.0-0.5 Mg/3 Ml) 3 ml NEB Q4H PRN PRN Reason: Shortness Of Breath/wheezing Bisacodyl (Dulcolax) 5 mg PO DAILY PRN PRN Reason: Constipation Chlordiazepoxide HCl (Librium) 25 mg PO Q8H PRN PRN Reason: Withdrawal Symptoms Clonidine HCl (Catapres) 0.1 mg PO Q4H PRN PRN Reason: Agitation Docusate Sodium (Colace) 100 mg PO BID PRN PRN Reason: Constipation Famotidine (Pepcid) 20 mg PO Q12H IRAIS Folic Acid (Folic Acid) 1 mg PO DAILY [facility] Stop: 02/28/18 09:01 Last Admin: 02/26/18 09:29 Dose: 1 mg Haloperidol Lactate (Haldol) 2 mg IM Q4H PRN PRN Reason: Agitation Hydralazine HCl (Apresoline) 20 mg IVPUSH Q4H PRN PRN Reason: Hypertension Last Admin: 02/26/18 09:37 Dose: 20 mg Hydromorphone HCl (Dilaudid) 0.25 mg IVPUSH Q2H PRN PRN Reason: Pain (severe 7-10) Promethazine HCl 12.5 mg/ (Sodium Chloride) 50.5 mls @ 100 mls/hr IV Q6H PRN PRN Reason: Nausea/Vomiting Sodium Chloride (Normal Saline) 1,000 mls @ 125 mls/hr IV ASDIRECTED IRAIS Ibuprofen (Motrin) 600 mg PO Q6H PRN PRN Reason: Pain (moderate 4-6) Lorazepam (Ativan) 2 mg IVPUSH Q4H PRN PRN Reason: Seizures Lorazepam (Ativan) 1 - 3 mg IV Q6H PRN; Protocol PRN Reason: Withdrawal Symptoms Magnesium Sulfate (Pharmacy To Dose - Magnesium Replacement) 0 dose .XX ASDIRECTED PRN PRN Reason: RX TO WATCH MAG LEVELS Metoprolol Tartrate (Lopressor) 5 mg IVPUSH Q4H PRN PRN Reason: Tachycardia Miscellaneous Information (Remove Patch) 0 ea TRDERM DAILY [facility] Multivitamins (Thera) 1 each PO DAILY [facility] Stop: 02/28/18 09:01 Last Admin: 02/26/18 09:28 Dose: 1 each Nicotine (Habitrol) 21 mg TRDERM DAILY PRN PRN Reason: Nicotine Dependence Last Admin: 02/26/18 09:31 Dose: 21 mg Ondansetron HCl (Zofran) 4 mg IV Q6H PRN PRN Reason: Nausea/Vomiting Oxycodone HCl (Oxycodone) 5 mg PO Q4H PRN PRN Reason: Pain (moderate 4-6) Polyethylene Glycol (Miralax) 17 gm PO DAILY PRN PRN Reason: Constipation Potassium Chloride (Pharmacy To Dose - Potassium Replacement) 0 dose .XX ASDIRECTED PRN PRN Reason: RX TO WATCH K LEVELS Quetiapine Fumarate (Seroquel) 50 mg PO BEDTIME IRAIS Senna/Docusate Sodium (Senna Plus) 1 tab PO BID PRN PRN Reason: Constipation Thiamine HCl (Vitamin B-1) 100 mg PO DAILY IRAIS Topiramate (Topamax) 25 mg PO BID IRAIS Last Admin: 02/26/18 09:28 Dose: 25 mg Assessment/Plan Comment:: Assessment/Plan: Acute: ETOH Withdrawal Symptoms - CIWA protocol: CIWA score is markedly elevated - Ativan/Librium/Clonidine/Topamax/Seroquel - Hydralazine and IVP BB for HR/BP control - Ativan for Abortive Seizure and Withdrawal Symptoms Substance Abuse - UDS: pos for THC - Counseled on Substance Abuse - SA/Psych consult Tobacco Dependence - Smokes 1ppd - Nicotine patch - Counseled on Smoking Cessation Chronic ETOH Use/Dependence - CIWA protocol - SA consult Electrolytes Abnormality - Hypokalemia - K 3.3 - 2/2 Poor nutritional state and oral intake - Replete and monitor - Hypomagnesemia - Mg 1.3 - 2/2 Poor nutritional state and oral intake - Replete and monitor Plan: Admit to ICU MVI, Folic Acid and Thiamine CIWA protocol Ativan for Abortive Seizure and Withdrawal Symptoms PRN meds for Withdrawal Symptoms Aspiration/Seizure Precautions SW/CM d/c planning SA/Psych consult Code Status: 1
[2018-02-26] MEDS: Sodium Chloride 0.9% 1,000 ML IV SCH ×2 (10:13→18:12)
--- NOTE | 2018-02-26 11:19 | CR ---
Chest: Portable view of the chest was obtained. Comparison: No prior chest x-ray. Heart size and mediastinum are normal. Lungs are clear. Bony structures are grossly intact. Impression: 1. Nothing acute is identified on portable chest x-ray. Diagnostic code #1
[2018-02-26] MEDS ORDERED: chlordiazePOXIDE 25 MG Cap PO ONE (12:24)
[2018-02-26] MEDS ORDERED: diphenhydrAMINE 50 MG/ML SDV IVPUSH ONE (12:24)
[2018-02-26] MEDS ORDERED: QUEtiapine 25 MG Tab PO SCH (21:00)
[2018-02-26] MEDS ORDERED: Famotidine 20 MG Tab PO SCH (21:00)
--- NOTE | 2018-02-26 21:49 | CONS ---
CONSULTING PHYSICIAN: Alberto Rodríguez MD DATE OF CONSULTATION: 02/26/2018 PSYCHIATRIC EVALUATION This is a 60-minute inpatient consult. IDENTIFICATION: The patient is a 47-year-old male who was admitted to the inpatient MICU at [facility] in [place], [place]. He is seen for psychiatric evaluation. CHIEF COMPLAINT: "I had shakes. I decided to quit drinking." HISTORY OF PRESENT ILLNESS: The patient is a 47-year-old male who reports that he has had a longstanding history of alcohol dependence and he states that he decided to quit. He stated most recently he was drinking about "6 to 9 shots of hard liquor and about 5 Hurricane beers." The patient states that he had been trying to quit on his own for the past few days, but he kept getting shakes and he also states "I was shitting out blood" from his rectum. He states "I just don't want feel to like this anymore" and wants to get sober. His became concerned and brought him into the emergency room for evaluation and he was admitted to the MICU with symptoms of withdrawal. The patient states he has started going to AA meetings and he wants to continue going to the AA meetings once he is medically stabilized. He does not feel that he needs inpatient treatment at this point in time. He denies any illicit substance use complicating his clinical picture. He denies any past psychiatric history and he states "I am pretty happy" in terms of the decision he made and he does not feel that he is drinking because he is depressed, he just states that he drinks because he has an alcohol dependency issue. He denies any suicidal or homicidal. He denies any psychotic, delusional, or paranoid symptoms. MEDICATIONS: At the time of presentation, none. ALLERGIES: No known drug allergies. PAST MEDICAL HISTORY: The patient denies. REVIEW OF SYSTEMS: Negative for any acute difficulties or complications currently with his GI, , pulmonary, cardiac, endocrine, immune, musculoskeletal, blood, or nervous systems. FAMILY PSYCHIATRIC AND CD HISTORY: The patient reports father may have had a history of alcoholism. PAST PSYCHIATRIC AND CD HISTORY: The patient denies any previous psychiatric hospitalizations or chemical dependency treatments. He has been going to AA lately. He has 2 DWIs in the past. Denies any previous suicide attempts, eating disorder history, or past psychiatric medication history. SOCIAL HISTORY: The patient was born in [place], [place], raised in [place], [place]. He is the 3rd of 4 siblings, having 1 fraternal twin who was 10 minutes later than him and has 2 sisters and 1 brother. The patient's parents were throughout childhood and adolescence. Father's career, in the army for 28 years. Mother was a homemaker. The patient's highest level of education is a GED. The patient currently works at [employer]. He has been twice. First marriage was for about 6 months. He was for many years and he has had a 2nd marriage now for about 4 years. 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 The patient lives in [place] with his . He has children, which are grown from other relationships. He denies any prior service. He is currently on probation for the next 3 months for his last DWI. He is a Islam and he is Spiritism in terms of his jayce formation. He enjoys watching sports. MENTAL STATUS EXAM: The patient is a 47-year-old white male in no apparent distress. Speech is of regular rate and rhythm. The patient is cognitively oriented. Psychomotor activity is within normal limits. There is no abnormal motor movements or tics observed. Gait and station are not observed. This patient is lying in bed during the inpatient consult. There is no behavioral or stated evidence of acute suicidal or homicidal ideation or acute psychotic, delusional, or paranoid symptoms. Thought processes are organized. There are no manic symptoms or loose associations evident. Judgment and insight appear unimpaired at this point in time. Motivation for help appears good. VITALS: At the time of consult 127/99, 89, 16, 98.1 degrees. IMPRESSION: 1. [place] I: a. Alcohol dependence, F10.20. b. Depression, NOS, F32.9. 2. [place] II: None. 3. [place] III: a. Symptoms of alcohol withdrawal. b. Bleeding from rectum, currently being treated. 4. [place] IV: Severe. 5. [place] V: 50 to 55. PLAN: 1. Sobriety. 2. AA rep to visit the patient while on unit. 3. Pastoral guidance. 4. Ativan per [facility] protocol. 5. Topamax 25 mg b.i.d. for seizure prophylaxis and anxiety reduction while on unit. 6. Seroquel 50 mg at bedtime for clarity of thought and anxiety reduction as well as sleep initiation and maintenance while patient is on unit. 7. Librium 25 mg q.8 hours p.r.n. 8. Thiamine supplementation. 9. Folic acid supplementation. 10.Recommend the patient follow up with outpatient primary MD, when he is medically stabilized and discharge back to the community. 11.If the patient is unable to maintain sobriety on his own and with the assistance of AA, would recommend inpatient and outpatient chemical dependency resources be made available to the patient going forward in that event. 12.We will continue to follow up with the patient on an as-needed basis while he remains on the inpatient MICU. 13.We will follow up with the patient sooner if any complications in the interim. 14.Other medications as dosed and prescribed by the patient's primary inpatient medical treatment team. 15.Crisis plan is in place. SETH /[id number]
[2018-02-27] MEDS: Sodium Chloride 0.9% 1,000 ML IV SCH (02:05)
--- NOTE | 2018-02-27 07:41 | PCM.DCSUM1 ---
Discharge Summary - Hospital Course Brief History: This is a 47 yo white male with no past medical hx/o who presented to the emergency department with complaints of tremor, tachycardia, restlessness, anxiety, and insomnia. He also states he has been vomiting every morning for the past 2 nights then developed dry heaving afterwards. He also has had rectal bleed for the past 2 months. He denies having history of constipation. Patient carries a history of chronic alcohol dependence. He used to drink mild-moderate but for the past couple of months he has been drinking more: 6-9 shots of whiskey along with 5-6 beers of a"tall hurricane". According to his , they have been thru "a lot stress" starting for the past couple months. Patient denies any history of anxiety, depression or PTSD. He smokes one pack a day but denies illicit drug use. Patient started drinking when he was 14-15 years of age. He has been in outpatient treatment in the past but never inpatient. He was never hospitalized for anything related to alcohol up until now. No history of DTs, Alcohol Seizures, Withdrawals, or Hallucinations. On presentation to the emergency department, the patient was in severely alcohol withdrawal. His initial workup in the emergency department shows a CBC remarkable for RBC of 4.49, MPV of 8.4, neutrophils of 67%, and lymphocytes of 0 %. His ABG shows pH of 7.55, PCO2 of26.6, PO2 of 78, HCO3 of 23.2, and O2 saturation of 97.5% on room air. His chemistry is significant for potassium of 3.3, anion gap of 15.3, glucose of 116, magnesium of 1.3, AST of 118, ALT of 74 , and alkaline phosphatase of 148. His UDS is positive for marijuana. His JOHN level is 0. Patient is being admitted for medical treatment of alcohol withdrawal symptoms. He is full code. Diagnosis: Stroke: No Modified [place] Scale: No Symptoms at All Modified [place] Scale Score: 0 - Discharge Data Discharge Date: 02/27/18 Discharge Disposition: Against Medical Advice 07 Condition: Good - Discharge Diagnosis/Problem(s) (1) Alcohol withdrawal SNOMED Code(s): 539972319 ICD Code: F10.239 - ALCOHOL DEPENDENCE WITH WITHDRAWAL, UNSPECIFIED Status : Acute (2) Substance abuse SNOMED Code(s): 74344270 ICD Code: F19.10 - OTHER PSYCHOACTIVE SUBSTANCE ABUSE, UNCOMPLICATED Status : Acute (3) Tobacco dependence SNOMED Code(s): 13652191 ICD Code: F17.200 - NICOTINE DEPENDENCE, UNSPECIFIED, UNCOMPLICATED Status : Acute (4) Chronic alcohol dependence, continuous SNOMED Code(s): 693459066 ICD Code: F10.20 - ALCOHOL DEPENDENCE, UNCOMPLICATED Status: Acute (5) Hypokalemia SNOMED Code(s): 26985367 ICD Code: E87.6 - HYPOKALEMIA Status: Acute (6) Hypomagnesemia SNOMED Code(s): 672306112 ICD Code: E83.42 - HYPOMAGNESEMIA Status: Acute (7) Depression SNOMED Code(s): 79698548 ICD Code: F32.9 - MAJOR DEPRESSIVE DISORDER, SINGLE EPISODE, UNSPECIFIED Status: Acute Qualifiers: Depression Type: unspecified Qualified Code(s): F32.9 - Major depressive disorder, single episode, unspecified - Patient Summary/Data Operative Procedure(s) Performed: None Complications: Unknown he left AMA Consults: Consultations 02/26/18 07:11 Consult to Case Management [CONS] Routine Consult to Physician [CONS] Routine Consult to Hotel Desk Clerk [CONS] Routine Consult to Spiritual Care [CONS] Routine 02/26/18 09:02 Consult for Substance Abuse [CONS] Routine Hospital Course: Patient was admitted for medical management of alcohol withdrawal symptoms. He was placed on CIWA protocol to improvement his symptoms. Unfortunately, he left this morning on his own accord against medical advice. - Patient Instructions Other/Special Instructions: - Patient left AMA - Discharge Plan *PRESCRIPTION DRUG MONITORING PROGRAM REVIEWED*: Not Applicable *COPY OF PRESCRIPTION DRUG MONITORING REPORT IN PATIENT KALIN: Not Applicable Home Medications: Home Meds . [No Known Home Meds] 02/26/18 [History] Patient Handouts: Steps to Quit Smoking Referrals: PCP,None [Primary Care Provider] - - Discharge Summary/Plan Comment Discharge Summary/Plan Comment: Patient left AMA - General Info Date of Service: 02/27/18 Admission Dx/Problem (Free Text: Admission Diagnosis/Problem Admission Diagnosis/Problem Substance abuse Subjective Update: Follow Up - Review of Systems Systems Review Comment: ROS unable to obtain, he left AMA - Patient Data Vitals - Most Recent: Last Vital Signs Temp 36.8 C 02/27/18 03:52 Pulse 65 02/27/18 03:52 Resp 16 02/27/18 03:52 BP 146/98 H 02/27/18 03:52 Pulse Ox 96 02/27/18 03:52 Orthostatic Blood Pressure [ 132/91 Standing] Orthostatic Blood Pressure [ 148/70 Supine] Weight - Most Recent: 77.111 kg I&O - Last 24 hours: Intake & Output 02/26/18 02/27/18 02/27/18 22:59 06:59 14:59 Intake Total 1295 1753 Output Total 100 700 Balance 1195 1053 Lab Results - Last 24 hrs: Laboratory Results - last 24 hr 02/27/18 Range/Units 06:11 WBC 3.85 L (4.23-9.07) K/mm3 RBC 4.10 L (4.63-6.08) M/mm3 Hgb 12.7 L (13.7-17.5) gm/L Hct 38.7 L (40.1-51.0) % MCV 94.4 H (79.0-92.2) fl MCH 31.0 (25.7-32.2) pg MCHC 32.8 (32.2-35.5) g/dl RDW Std Deviation 43.0 (35.1-43.9) fL Plt Count 196 (163-337) K/mm3 MPV 8.8 L (9.4-12.3) fl Neut % (Auto) 66.8 (34.0-67.9) % Lymph % (Auto) 22.9 (21.8-53.1) % [place] % (Auto) 6.8 (5.3-12.2) % Eos % (Auto) 2.9 (0.8-7.0) Baso % (Auto) 0.3 (0.1-1.2) % Neut # (Auto) 2.58 (1.78-5.38) K/mm3 Lymph # (Auto) 0.88 L (1.32-3.57) K/mm3 [place] # (Auto) 0.26 L (0.30-0.82) K/mm3 Eos # (Auto) 0.11 (0.04-0.54) K/mm3 Baso # (Auto) 0.01 (0.01-0.08) K/mm3 Med Orders - Current: Current Medications Discontinued Medications Albuterol/Ipratropium (Duoneb 3.0-0.5 Mg/3 Ml) 3 ml NEB Q4H PRN PRN Reason: Shortness Of Breath/wheezing Bisacodyl (Dulcolax) 5 mg PO DAILY PRN PRN Reason: Constipation Chlordiazepoxide HCl (Librium) 25 mg PO Q8H PRN PRN Reason: Withdrawal Symptoms Chlordiazepoxide HCl (Librium) 50 mg PO ONETIME ONE Stop: 02/26/18 12:25 Last Admin: 02/26/18 13:04 Dose: 50 mg Clonidine HCl (Catapres) 0.1 mg PO Q4H PRN PRN Reason: Agitation Diphenhydramine HCl (Benadryl) 50 mg IVPUSH ONETIME ONE Stop: 02/26/18 12:25 Last Admin: 02/26/18 13:04 Dose: 50 mg Docusate Sodium (Colace) 100 mg PO BID PRN PRN Reason: Constipation Famotidine (Pepcid) 20 mg PO Q12H [facility] Last Admin: 02/26/18 20:07 Dose: 20 mg Folic Acid (Folic Acid) 1 mg PO DAILY [facility] Stop: 02/28/18 09:01 Last Admin: 02/26/18 09:29 Dose: 1 mg Haloperidol Lactate (Haldol) 2 mg IM Q4H PRN PRN Reason: Agitation Hydralazine HCl (Apresoline) 20 mg IVPUSH Q4H PRN PRN Reason: Hypertension Last Admin: 02/26/18 09:37 Dose: 20 mg Hydromorphone HCl (Dilaudid) 0.25 mg IVPUSH Q2H PRN PRN Reason: Pain (severe 7-10) Sodium Chloride (Normal Saline) 1,000 mls @ 999 mls/hr IV ONETIME ONE Stop: 02/26/18 05:30 Last Admin: 02/26/18 04:50 Dose: 999 mls/hr Magnesium Sulfate 2 gm/ Premix 50 mls @ 50 mls/hr IV ONETIME ONE Stop: 02/26/18 07:06 Last Admin: 02/26/18 06:26 Dose: 50 mls/hr Promethazine HCl 12.5 mg/ (Sodium Chloride) 50.5 mls @ 100 mls/hr IV Q6H PRN PRN Reason: Nausea/Vomiting Thiamine HCl 100 mg/ Sodium (Chloride) 51 mls @ 100 mls/hr IV ONETIME ONE Stop: 02/26/18 10:00 Last Admin: 02/26/18 09:44 Dose: 100 mls/hr Sodium Chloride (Normal Saline) 1,000 mls @ 125 mls/hr IV ASDIRECTED IRAIS Last Admin: 02/27/18 02:05 Dose: 125 mls/hr Ibuprofen (Motrin) 600 mg PO Q6H PRN PRN Reason: Pain (moderate 4-6) Lorazepam (Ativan) 1 mg IVPUSH ONETIME STA Stop: 02/26/18 05:23 Last Admin: 02/26/18 05:30 Dose: 1 mg Lorazepam (Ativan) 2 mg IVPUSH Q4H PRN PRN Reason: Seizures Lorazepam (Ativan) 1 - 3 mg IV Q6H PRN; Protocol PRN Reason: Withdrawal Symptoms Magnesium Sulfate (Pharmacy To Dose - Magnesium Replacement) 0 dose .XX ASDIRECTED PRN PRN Reason: RX TO WATCH MAG LEVELS Metoprolol Tartrate (Lopressor) 5 mg IVPUSH Q4H PRN PRN Reason: Tachycardia Last Admin: 02/26/18 11:17 Dose: 5 mg Miscellaneous Information (Remove Patch) 0 ea TRDERM DAILY [facility] Multivitamins (Thera) 1 each PO DAILY [facility] Stop: 02/28/18 09:01 Last Admin: 02/26/18 09:28 Dose: 1 each Nicotine (Habitrol) 21 mg TRDERM DAILY PRN PRN Reason: Nicotine Dependence Last Admin: 02/26/18 09:31 Dose: 21 mg Ondansetron HCl (Zofran) 4 mg IVPUSH ONETIME ONE Stop: 02/26/18 04:31 Last Admin: 02/26/18 04:51 Dose: 4 mg Ondansetron HCl (Zofran) 4 mg IV Q6H PRN PRN Reason: Nausea/Vomiting Oxycodone HCl (Oxycodone) 5 mg PO Q4H PRN PRN Reason: Pain (moderate 4-6) Pantoprazole Sodium (Protonix Iv) 40 mg IV ONETIME ONE Stop: 02/26/18 09:01 Last Admin: 02/26/18 09:28 Dose: 40 mg Polyethylene Glycol (Miralax) 17 gm PO DAILY PRN PRN Reason: Constipation Potassium Chloride (Pharmacy To Dose - Potassium Replacement) 0 dose .XX ASDIRECTED PRN PRN Reason: RX TO WATCH K LEVELS Potassium Chloride (Klor-Con M20) 40 meq PO ONETIME ONE Stop: 02/26/18 10:01 Last Admin: 02/26/18 10:10 Dose: 40 meq Quetiapine Fumarate (Seroquel) 50 mg PO ONETIME ONE Stop: 02/26/18 09:11 Last Admin: 02/26/18 09:28 Dose: 50 mg Quetiapine Fumarate (Seroquel) 50 mg PO BEDTIME [facility] Last Admin: 02/26/18 20:07 Dose: 50 mg Senna/Docusate Sodium (Senna Plus) 1 tab PO BID PRN PRN Reason: Constipation Thiamine HCl (Vitamin B-1) 100 mg PO DAILY [facility] Topiramate (Topamax) 25 mg PO BID [facility] Last Admin: 02/26/18 20:07 Dose: 25 mg - Exam Physical Findings Comments:: Physical exam unable to perform, he left AMA
[2018-02-27] MEDS ORDERED: Thiamine 100 MG Tab PO SCH (09:00)
== END 2018-02-27 06:50 | disposition left against medical advice (07) | DRG 894 ==
LOC: JD.ED 03:55 → JD.ICU 06:50
PROVIDERS: ADMIT Internal Medicine; ATTEND Internal Medicine
DX: F10.239 Alcohol dependence with withdrawal, unspecified (principal); K92.1 Melena; E87.3 Alkalosis; F41.9 Anxiety disorder, unspecified; F32.9 Major depressive disorder, single episode, unspecified; F43.10 Post-traumatic stress disorder, unspecified; F17.200 Nicotine dependence, unspecified, uncomplicated; F12.10 Cannabis abuse, uncomplicated; E87.6 Hypokalemia; E83.42 Hypomagnesemia; Z91.19 Patient's noncompliance with other medical treatment and regimen; J41.0 Simple chronic bronchitis
CPT/HCPCS: 36415; 36600; 71045; 71045-26; 80053; 80306; 82803; 83605; 83735; 85007; 85025; 85027; 93005; A9270-GY; C9113; G0480; J0360; J1200; J2060; J2405; J3411; J3475; J3490; J7040; J7050

== ENCOUNTER 2018-12-13 18:09 | Inpatient (IN) | payer SELFPAY ==
[2018-12-13] MEDS ORDERED: LORazepam 2 MG/ML SDV IVPUSH ONE (18:47)
[2018-12-13] MEDS ORDERED: Sodium Chloride 0.9% 1,000 ML IV ONE (18:47)
[2018-12-13] MEDS ORDERED: Ondansetron 4 MG/2 ML SDV IVPUSH ONE (18:47)
[2018-12-13] MEDS ORDERED: Multivitamins,Therapeutic Tab PO ONE ×2 (18:48→20:34)
[2018-12-13] MEDS ORDERED: Thiamine 200 MG/2 ML MDV IM ONE (18:48)
--- NOTE | 2018-12-13 18:49 | EDM.PDOCBH ---
ED HPI GENERAL MEDICAL PROBLEM - General Chief Complaint: Drug or Alcohol Abuse Stated Complaint: ALCOHOL WITHDRAWALS Time Seen by Provider: 12/13/18 18:46 Source of Information: Reports: Patient History Limitations: Reports: Intoxication - History of Present Illness INITIAL COMMENTS - FREE TEXT/NARRATIVE: 48 yo M comes in w/ today wanting to get help for his alcoholism. He started drinking Whiskey at 12 yo "and it's gotten worse ever since". He is at the point where "it's not fun anymore and I have to drink to function". He takes 6-9 shots of whiskey throughout the day as well as 3-6 beers because "I feel like sh if I don't". He even states he needs 3 shots before going to work. 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 He has a h/o 5- 6 detoxes in the past, one of which was here about 1 year ago where he left A. He states "it's different this time" and is "doing this to save my marriage ". He has never done any counseling for this, but states he has gone to AA. He does not have a sponsor at this time. He is unsure if he has every had seizures , but states he gets tachycardia, "the shakes", can't sleep, and has multiple episodes of bloody emesis. He had 2-3 episode of bloody emesis this morning. He wants to be admitted bc he's "afraid of detoxing". He is currently intoxicated. He's smokes 1/2ppd x 36 years. - Related Data Allergies Allergy/AdvReac Type Severity Reaction Status Date / Time No Known Allergies Allergy Verified 12/13/18 21:45 Home Meds: Home Meds . [No Known Home Meds] 02/26/18 [History] Past Medical History - Past Health History Medical/Surgical History: Denies Medical/Surgical History Psychiatric History: Reports: Addiction - Past Surgical History HEENT Surgical History: Reports: Oral Surgery Social & Family History - Family History Family Medical History: Noncontributory - Caffeine Use Caffeine Use: Reports: Coffee - Living Situation & Occupation Living situation: Reports: , with Spouse Occupation: Employed ([employer]) ED ROS GENERAL - Review of Systems Review Of Systems: ROS reveals no pertinent complaints other than HPI. ED EXAM, BEHAVIORAL HEALTH - Physical Exam Exam: See Below Exam Limited By: Intoxication General Appearance: Alert, WD/WN, Anxious Eye Exam: Bilateral Eye: EOMI, Nystagmus, PERRL Ears: Normal External Exam, Hearing Grossly Normal Nose: Normal Inspection, Normal Mucosa, No Blood Throat/Mouth: Normal Voice, No Airway Compromise. No: Normal Lips (dry), Normal Oropharynx (dry, tongue coated) Head: Atraumatic, Normocephalic Neck: Normal Inspection, Supple, Non-Tender, Full Range of Motion Respiratory/Chest: No Respiratory Distress, Lungs Clear, Normal Breath Sounds, No Accessory Muscle Use, Chest Non-Tender Cardiovascular: Normal Peripheral Pulses, Regular Rate, Rhythm, No Edema, No Gallop, No JVD, No Murmur, No Rub GI/Abdominal: Normal Bowel Sounds, Soft, Non-Tender, No Organomegaly, No Distention, No Abnormal Bruit, No Mass Back Exam: Normal Inspection Extremities: Normal Range of Motion, Non-Tender, No Pedal Edema, Normal Capillary Refill, Other (clubbing noted on hands and feet) Neurological: Alert, Oriented x 3 Psychiatric: Tearful, Other (intoxicated). No: Homicidal Thoughts, Suicidal Thoughts, Auditory Hallucinations, Visual Hallucinations Skin Exam: Warm, Dry, Intact, Jaundice (mild) COURSE, BEHAVIORAL HEALTH COMP - Course Vital Signs: Last Vital Signs Temp 97.3 F 12/13/18 18:35 Pulse 78 12/13/18 18:35 Resp 20 12/13/18 18:35 BP 139/96 H 12/13/18 18:35 Pulse Ox 100 12/13/18 18:35 Orders, Labs, Meds: Active Orders 24 hr Category Date Time Status CIWAA Assessment [RC] Q30M Care 12/13/18 18:48 Active Seizure Precautions [OM.PC] Routine Oth 12/13/18 18:48 Ordered Medication Orders Folic Acid (Folic Acid) 1 mg PO DAILY [facility] Stop: 12/16/18 09:01 Thiamine HCl 100 mg/ Sodium (Chloride) 51 mls @ 100 mls/hr IV DAILY [facility] Lorazepam (Ativan) 0 mg IV ASDIRECTED IRAIS; Protocol Nicotine (Habitrol) 14 mg TRDERM DAILY [facility] Last Admin: 12/13/18 21:42 Dose: 14 mg Pantoprazole Sodium (Protonix Iv) 40 mg IV DAILY [facility] Laboratory Tests 12/13/18 12/13/18 12/13/18 Range/Units 19:15 19:15 19:28 WBC 4.71 (4.23-9.07) K/mm3 RBC 4.69 (4.63-6.08) M/mm3 Hgb 14.6 D (13.7-17.5) gm/L Hct 43.6 (40.1-51.0) % MCV 93.0 H (79.0-92.2) fl MCH 31.1 (25.7-32.2) pg MCHC 33.5 (32.2-35.5) g/dl RDW Std Deviation 43.8 (35.1-43.9) fL Plt Count 250 (163-337) K/mm3 MPV 8.8 L (9.4-12.3) fl Neut % (Auto) 37.7 (34.0-67.9) % Lymph % (Auto) 49.0 (21.8-53.1) % [place] % (Auto) 7.6 (5.3-12.2) % Eos % (Auto) 5.3 (0.8-7.0) Baso % (Auto) 0.4 (0.1-1.2) % Neut # (Auto) 1.77 L (1.78-5.38) K/mm3 Lymph # (Auto) 2.31 (1.32-3.57) K/mm3 [place] # (Auto) 0.36 (0.30-0.82) K/mm3 Eos # (Auto) 0.25 (0.04-0.54) K/mm3 Baso # (Auto) 0.02 (0.01-0.08) K/mm3 Sodium 143 (136-145) mEq/L Potassium 3.4 L (3.5-5.1) mEq/L Chloride 105 (98-107) mEq/L Carbon Dioxide 25 (21-32) mEq/L Anion Gap 16.4 H (5-15) BUN 11 (7-18) mg/dL Creatinine 1.0 (0.7-1.3) mg/dL Est Cr Clr Drug Dosing 89.36 mL/min Estimated GFR (MDRD) > 60 (>60) mL/min BUN/Creatinine Ratio 11.0 L (14-18) Glucose 153 H (74-106) mg/dL Calcium 8.8 (8.5-10.1) mg/dL Magnesium 2.1 (1.8-2.4) mg/dl Total Bilirubin 0.1 L (0.2-1.0) mg/dL AST 83 H (15-37) U/L ALT 88 H (16-63) U/L Alkaline Phosphatase 124 H (46-116) U/L Total Protein 7.5 (6.4-8.2) g/dl Albumin 3.8 (3.4-5.0) g/dl Globulin 3.7 gm/dL Albumin/Globulin Ratio 1.0 (1-2) Urine Opiates Screen Negative (GMDIRZ=767) Ur Buprenorphine Scrn Negative (CUTOFF=10) Ur Oxycodone Screen Negative (JVG7BT=508) Urine Methadone Screen Negative (RJD4SL=482) Ur Propoxyphene Screen Negative (JERVJH=587) Ur Barbiturates Screen Negative (PJKWNO=277) Ur Tricyclics Screen Negative (UQTVAV=188) Ur Phencyclidine Scrn Negative (CUTOFF=25) Ur Amphetamine Screen Negative (RSXYND=558) U Methamphetamines Scrn Negative (HBPISG=537) U Benzodiazepines Scrn Negative (XOVKGQ=185) U Cocaine Metab Screen Negative (XGMPPA=631) U Marijuana (THC) Screen Negative (CUTOFF=50) Ethyl Alcohol 0.29 (0.00) gm% Medications Generic Name Dose Route Start Last Admin Trade Name Freq PRN Reason Stop Dose Admin Folic Acid 1 mg 12/14/18 09:00 Folic Acid PO 12/16/18 09:01 DAILY [facility] Thiamine HCl 100 mg/ Sodium 51 mls @ 100 mls/hr 12/14/18 09:00 Chloride IV DAILY [facility] Lorazepam 0 mg 12/13/18 20:45 Ativan IV ASDIRECTED [facility] Protocol Nicotine 14 mg 12/13/18 20:45 12/13/18 21:42 Habitrol TRDERM 14 mg DAILY [facility] Administration Pantoprazole Sodium 40 mg 12/14/18 09:00 Protonix Iv IV DAILY [facility] Discontinued Medications Generic Name Dose Route Start Last Admin Trade Name Freq PRN Reason Stop Dose Admin Folic Acid 1 mg 12/13/18 19:00 12/13/18 19:10 Folic Acid PO 12/13/18 19:01 1 mg ONETIME ONE Administration Sodium Chloride 1,000 mls @ 999 mls/hr 12/13/18 18:47 12/13/18 19:10 Normal Saline IV 12/13/18 19:47 999 mls/hr ONETIME ONE Administration Lorazepam 1 mg 12/13/18 18:47 12/13/18 19:10 Ativan IVPUSH 12/13/18 18:48 1 mg ONETIME ONE Administration Multivitamins 1 each 12/13/18 18:48 12/13/18 19:26 Thera PO 12/13/18 18:49 1 each ONETIME ONE Administration Multivitamins 1 each 12/13/18 20:34 12/13/18 21:42 Thera PO 12/13/18 20:35 1 each ONETIME ONE Administration Ondansetron HCl 4 mg 12/13/18 18:47 12/13/18 19:11 Zofran IVPUSH 12/13/18 18:48 4 mg ONETIME ONE Administration Pantoprazole Sodium 40 mg 12/13/18 19:00 12/13/18 19:10 Protonix Iv IV 12/13/18 19:01 40 mg ONETIME ONE Administration Thiamine HCl 100 mg 12/13/18 18:48 12/13/18 19:11 Vitamin B-1 IM 12/13/18 18:49 100 mg ONETIME ONE Administration Re-Assessment/Re-Exam: 12/13/2018 18:50 Ordered CBC, CMP, Mag, EtOH, Drug Screen 1L Bolus NS, Zofran, Ativan 1mg, Thiamine, Folic Acid, Multivitamin, Protonix 40mg [facility] protocol 12/13/2018 19:30 CBC WNL CMP shows K 3.4, AGap 16.4, Glu 153, Bili 0.1, AST 83, ALT 88, Alk Phos 124 Mag WNL at 2.1 EtOH 0.29 Drug screen negative 12/13/2018 20:[address] Mathews. He has accepted the patient for EtOH intoxication, abuse, and withdrawal. He has asked I put bridge orders in. Departure - Departure Time of Disposition: 20:23 Disposition: Admitted As Inpatient 65 Condition: Fair Clinical Impression: Alcohol abuse, Alcohol withdrawal, Intoxication - Discharge Information *PRESCRIPTION DRUG MONITORING PROGRAM REVIEWED*: Not Applicable *COPY OF PRESCRIPTION DRUG MONITORING REPORT IN PATIENT KALIN: Not Applicable - My Orders Last 24 Hours: My Active Orders 12/13/18 18:48 CIWAA Assessment [RC] Q30M Seizure Precautions [OM.PC] Routine - Assessment/Plan Last 24 Hours: My Active Orders 12/13/18 18:48 CIWAA Assessment [RC] Q30M Seizure Precautions [OM.PC] Routine
[2018-12-13] MEDS ORDERED: Folic Acid 1 MG Tab PO ONE (19:00)
[2018-12-13] MEDS ORDERED: Pantoprazole 40 MG Vial IV ONE (19:00)
[2018-12-13] MEDS ORDERED: Nicotine 14 MG/24 Hr Patch TRDERM SCH (20:45)
[2018-12-13] MEDS ORDERED: LORazepam 2 MG/ML SDV IV SCH (20:45)
[2018-12-13] MEDS ORDERED: LORazepam 1 MG Tab PO ONE (22:01)
[2018-12-14] MEDS: Ondansetron 4 MG/2 ML SDV IVPUSH PRN ×2 (04:46→09:51)
[2018-12-14] MEDS ORDERED: Pantoprazole 40 MG Tab.CR PO SCH (08:00)
[2018-12-14] MEDS ORDERED: Thiamine 100 MG in Sodium Chloride 0.9% 50 ML IV SCH (09:00)
[2018-12-14] MEDS ORDERED: Pantoprazole 40 MG Vial IV SCH (09:00)
[2018-12-14] MEDS ORDERED: Thiamine 200 MG/2 ML MDV IVPUSH SCH (09:00)
[2018-12-14] MEDS ORDERED: Folic Acid 1 MG Tab PO SCH (09:00)
[2018-12-14] MEDS ORDERED: Magnesium Sulfate/Water 2 GM in Premix Bag 1 BAG IV ONE (09:16)
[2018-12-14] MEDS ORDERED: LORazepam 1 MG Tab PO ONE (12:50)
--- NOTE | 2018-12-14 15:57 | PCM.HP ---
H&P History of Present Illness - General Date of Service: 12/14/18 Admit Problem/Dx: Admission Diagnosis/Problem Admission Diagnosis/Problem Alcohol dependence with withdrawal - History of Present Illness Initial Comments - Free Text/Narative: This serves as discharge summary as well. 48 yo M comes in w/ today wanting to get help for his alcoholism. He started drinking Whiskey at 12 yo "and it's gotten worse ever since". He is at the point where "it's not fun anymore and I have to drink to function". He takes 6-9 shots of whiskey throughout the day as well as 3-6 beers because "I feel like sh if I don't". He even states he needs 3 shots before going to work. 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 He has a h/o 5- 6 detoxes in the past, one of which was here about 1 year ago where he left AMA. He states "it's different this time" and is "doing this to save my marriage ". He has never done any counseling for this, but states he has gone to AA. He does not have a sponsor at this time. He is unsure if he has every had seizures , but states he gets tachycardia, "the shakes", can't sleep, and has multiple episodes of bloody emesis. He had 2-3 episode of bloody emesis this morning. He wants to be admitted bc he's "afraid of detoxing". He is currently intoxicated. He's smokes 1/2ppd x 36 years. 12/14/18, UNDERWENT eval by behavior and psychiatry. Is being discharged home to self care with their recommendations. - Related Data Allergies/Adverse Reactions: Allergies Allergy/AdvReac Type Severity Reaction Status Date / Time No Known Allergies Allergy Verified 12/13/18 21:45 Home Medications: Home Meds . [No Known Home Meds] 02/26/18 [History] Past Medical History - Past Health History Medical/Surgical History: Denies Medical/Surgical History Psychiatric History: Reports: Addiction - Past Surgical History HEENT Surgical History: Reports: Oral Surgery Social & Family History - Family History Family Medical History: Noncontributory - Tobacco Use Smoking Status *Q: Current Every Day Smoker Years of Tobacco use: 36 Packs/Tins Daily: 1.5 - Caffeine Use Caffeine Use: Reports: Coffee - Alcohol Use Days Per Week of Alcohol Use: 7 Number of Drinks Per Day: 17 Total Drinks Per Week: 119 Date of Last Drink: 12/13/18 Time of Last Drink: 09:00 - Recreational Drug Use Recreational Drug Use: Yes Recreational Drug Type: Reports: Marijuana/Hashish Recreational Drug Use Frequency: Rarely Recreational Drug Last Use: 11/13/18 - Living Situation & Occupation Living situation: Reports: , with Spouse Occupation: Employed ([employer]) H&P Review of Systems - Review of Systems: Review Of Systems: See Below General: Denies: Fever, Chills HEENT: Reports: No Symptoms Pulmonary: Reports: No Symptoms Cardiovascular: Reports: No Symptoms Gastrointestinal: Reports: Anorexia, Nausea Genitourinary: Reports: No Symptoms Musculoskeletal: Reports: No Symptoms Skin: Reports: No Symptoms Psychiatric: Reports: Anxiety Neurological: Reports: Tremors Hematologic/Lymphatic: Denies: Easy Bleeding, Easy Bruising Exam - Exam Exam: See Below - Vital Signs Vital Signs: Last Vital Signs Temp 98.2 F 12/14/18 12:00 Pulse 85 12/14/18 12:00 Resp 17 12/14/18 12:00 BP 118/85 12/14/18 12:00 Pulse Ox 96 12/14/18 12:00 Weight: 173 lb 14.4 oz - Exam HEENT: Conjunctiva Clear, Nares Patent Neck: Supple, Trachea Midline Lungs: Clear to Auscultation Cardiovascular: Regular Rate, Regular Rhythm GI/Abdominal Exam: Normal Bowel Sounds, Non-Tender Extremities: Normal Inspection Peripheral Pulses: 2+: Posterior Tibial (L), Posterior Tibial (R) Skin: Warm, Dry, Intact Neuro Extensive - Mental Status: Alert, Oriented x3 Neuro Extensive - Motor, Sensory, Reflexes: No: Motor/Sensory Deficits - Patient Data Lab Results Last 24 hrs: Laboratory Results - last 24 hr 12/13/18 12/13/18 12/13/18 Range/Units 19:15 19:15 19:28 WBC 4.71 (4.23-9.07) K/mm3 RBC 4.69 (4.63-6.08) M/mm3 Hgb 14.6 D (13.7-17.5) gm/L Hct 43.6 (40.1-51.0) % MCV 93.0 H (79.0-92.2) fl MCH 31.1 (25.7-32.2) pg MCHC 33.5 (32.2-35.5) g/dl RDW Std Deviation 43.8 (35.1-43.9) fL Plt Count 250 (163-337) K/mm3 MPV 8.8 L (9.4-12.3) fl Neut % (Auto) 37.7 (34.0-67.9) % Lymph % (Auto) 49.0 (21.8-53.1) % [place] % (Auto) 7.6 (5.3-12.2) % Eos % (Auto) 5.3 (0.8-7.0) Baso % (Auto) 0.4 (0.1-1.2) % Neut # (Auto) 1.77 L (1.78-5.38) K/mm3 Lymph # (Auto) 2.31 (1.32-3.57) K/mm3 [place] # (Auto) 0.36 (0.30-0.82) K/mm3 Eos # (Auto) 0.25 (0.04-0.54) K/mm3 Baso # (Auto) 0.02 (0.01-0.08) K/mm3 Sodium 143 (136-145) mEq/L Potassium 3.4 L (3.5-5.1) mEq/L Chloride 105 (98-107) mEq/L Carbon Dioxide 25 (21-32) mEq/L Anion Gap 16.4 H (5-15) BUN 11 (7-18) mg/dL Creatinine 1.0 (0.7-1.3) mg/dL Est Cr Clr Drug Dosing 89.36 mL/min Estimated GFR (MDRD) > 60 (>60) mL/min BUN/Creatinine Ratio 11.0 L (14-18) Glucose 153 H (74-106) mg/dL Calcium 8.8 (8.5-10.1) mg/dL Magnesium 2.1 (1.8-2.4) mg/dl Total Bilirubin 0.1 L (0.2-1.0) mg/dL AST 83 H (15-37) U/L ALT 88 H (16-63) U/L Alkaline Phosphatase 124 H (46-116) U/L Total Protein 7.5 (6.4-8.2) g/dl Albumin 3.8 (3.4-5.0) g/dl Globulin 3.7 gm/dL Albumin/Globulin Ratio 1.0 (1-2) Urine Opiates Screen Negative (USFHQN=935) Ur Buprenorphine Scrn Negative (CUTOFF=10) Ur Oxycodone Screen Negative (HSV6QI=466) Urine Methadone Screen Negative (YAH2QN=921) Ur Propoxyphene Screen Negative (DAOFLE=147) Ur Barbiturates Screen Negative (LQKHKO=489) Ur Tricyclics Screen Negative (GSDCUL=547) Ur Phencyclidine Scrn Negative (CUTOFF=25) Ur Amphetamine Screen Negative (HPSLWK=898) U Methamphetamines Scrn Negative (UZYLDR=348) U Benzodiazepines Scrn Negative (GRSVOI=005) U Cocaine Metab Screen Negative (APFDWF=795) U Marijuana (THC) Screen Negative (CUTOFF=50) Ethyl Alcohol 0.29 (0.00) gm% 12/14/18 12/14/18 Range/Units 05:33 05:33 WBC 4.08 L (4.23-9.07) K/mm3 RBC 4.11 L (4.63-6.08) M/mm3 Hgb 12.8 L D (13.7-17.5) gm/L Hct 39.2 L (40.1-51.0) % MCV 95.4 H (79.0-92.2) fl MCH 31.1 (25.7-32.2) pg MCHC 32.7 (32.2-35.5) g/dl RDW Std Deviation 45.3 H (35.1-43.9) fL Plt Count 225 (163-337) K/mm3 MPV 9.1 L (9.4-12.3) fl Neut % (Auto) 61.9 (34.0-67.9) % Lymph % (Auto) 26.7 (21.8-53.1) % [place] % (Auto) 6.6 (5.3-12.2) % Eos % (Auto) 4.4 (0.8-7.0) Baso % (Auto) 0.2 (0.1-1.2) % Neut # (Auto) 2.52 (1.78-5.38) K/mm3 Lymph # (Auto) 1.09 L (1.32-3.57) K/mm3 [place] # (Auto) 0.27 L (0.30-0.82) K/mm3 Eos # (Auto) 0.18 (0.04-0.54) K/mm3 Baso # (Auto) 0.01 (0.01-0.08) K/mm3 Sodium 139 (136-145) mEq/L Potassium 4.0 (3.5-5.1) mEq/L Chloride 104 (98-107) mEq/L Carbon Dioxide 26 (21-32) mEq/L Anion Gap 13.0 (5-15) BUN 11 (7-18) mg/dL Creatinine 1.0 (0.7-1.3) mg/dL Est Cr Clr Drug Dosing 89.36 mL/min Estimated GFR (MDRD) > 60 (>60) mL/min BUN/Creatinine Ratio 11.0 L (14-18) Glucose 117 H (74-106) mg/dL Calcium 8.8 (8.5-10.1) mg/dL Magnesium 1.6 L (1.8-2.4) mg/dl Total Bilirubin (0.2-1.0) mg/dL AST (15-37) U/L ALT (16-63) U/L Alkaline Phosphatase (46-116) U/L Total Protein (6.4-8.2) g/dl Albumin (3.4-5.0) g/dl Globulin gm/dL Albumin/Globulin Ratio (1-2) Urine Opiates Screen (UAUZBG=157) Ur Buprenorphine Scrn (CUTOFF=10) Ur Oxycodone Screen (RCK0IG=615) Urine Methadone Screen (CUC8ZA=541) Ur Propoxyphene Screen (VKCSYE=921) Ur Barbiturates Screen (PTRJWL=697) Ur Tricyclics Screen (JHPLCW=202) Ur Phencyclidine Scrn (CUTOFF=25) Ur Amphetamine Screen (AYHBHV=248) U Methamphetamines Scrn (QJBVXW=676) U Benzodiazepines Scrn (VGRFVF=265) U Cocaine Metab Screen (UWZKGI=015) U Marijuana (THC) Screen (CUTOFF=50) Ethyl Alcohol (0.00) gm% Result Diagrams: 12/14/18 05:33 12/14/18 05:33 - Problem List (1) Alcohol withdrawal SNOMED Code(s): 313222854 ICD Code: F10.239 - ALCOHOL DEPENDENCE WITH WITHDRAWAL, UNSPECIFIED Status : Acute Current Visit: No Problem List Initiated/Reviewed/Updated: Yes Orders Last 24hrs: Active Orders 24 hr Category Date Time Status Admission Status [Patient Status] [ADT] Routine ADT 12/13/18 20:27 Active Antiembolic Devices [RC] BID Care 12/13/18 20:31 Active CIWAA Assessment [RC] Q1HR Care 12/13/18 20:34 Active Cardiac Monitoring [RC] CONTINUOUS Care 12/13/18 20:30 Active Communication Order [RC] PER UNIT ROUTINE Care 12/14/18 12:52 Active Height and Weight [RC] 04 Care 12/13/18 20:30 Active Intake and Output [RC] 04,16 Care 12/13/18 20:30 Active Notify Provider Consults [RC] ASDIRECTED Care 12/13/18 20:31 Active Notify Provider [RC] PRN Care 12/13/18 20:34 Active Oxygen Therapy [RC] PRN Care 12/13/18 20:30 Active Ready for Discharge [RC] PER UNIT ROUTINE Care 12/14/18 15:55 Ordered Up ad Sindi [RC] ASDIRECTED Care 12/13/18 20:30 Active VTE/DVT Education [RC] DAILY Care 12/13/18 20:30 Active Vital Signs [RC] Q4HR Care 12/13/18 20:30 Active Consult for Substance Abuse [CONS] Routine Cons 12/13/18 20:33 Active Consult to Case Management/Straw Boss [CONS] Cons 12/13/18 20:30 Active Routine Consult to Physician [CONS] Routine Cons 12/13/18 20:30 Active Consult to Spiritual Care [CONS] Routine Cons 12/13/18 20:30 Active Regular Diet [DIET] Diet 12/14/18 Breakfast Active Folic Acid Med 12/14/18 09:00 Active 1 mg PO DAILY LORazepam [Ativan] Med 12/13/18 20:45 Active See Protocol IV ASDIRECTED Nicotine [Habitrol] Med 12/14/18 21:00 Active 14 mg TRDERM DAILY@2100 Ondansetron [Zofran] Med 12/14/18 04:39 Active 4 mg IVPUSH Q4H PRN Pantoprazole [ProTONIX] Med 12/14/18 08:00 Active 40 mg PO DAILY@0700 QUEtiapine [SEROquel] Med 12/14/18 21:00 Active 25 mg PO BEDTIME Remove Patch Med 12/14/18 21:00 Active 1 ea TRDERM Q24H Thiamine [Vitamin B-1] Med 12/15/18 09:00 Active 100 mg PO DAILY Topiramate [Topamax] Med 12/14/18 21:00 Active 25 mg PO BID Seizure Precautions [OM.PC] Routine Oth 12/13/18 18:48 Ordered Sequential Compression Device [OM.PC] Per Unit Routine Oth 12/13/18 20:31 Ordered Code Status [Resuscitation Status] Stat Resus Stat 12/13/18 20:27 Ordered Medication Orders Folic Acid (Folic Acid) 1 mg PO DAILY IRAIS Stop: 12/16/18 09:01 Last Admin: 12/14/18 08:50 Dose: 1 mg Lorazepam (Ativan) 0 mg IV ASDIRECTED IRAIS; Protocol Miscellaneous Information (Remove Patch) 1 ea TRDERM Q24H [facility] Nicotine (Habitrol) 14 mg TRDERM DAILY@2100 [facility] Ondansetron HCl (Zofran) 4 mg IVPUSH Q4H PRN PRN Reason: Nausea Last Admin: 12/14/18 09:51 Dose: 4 mg Admin: 12/14/18 04:46 Dose: 4 mg Pantoprazole Sodium (Protonix) 40 mg PO DAILY@0700 IRAIS Last Admin: 12/14/18 08:51 Dose: 40 mg Quetiapine Fumarate (Seroquel) 25 mg PO BEDTIME IRAIS Thiamine HCl (Vitamin B-1) 100 mg PO DAILY [facility] Topiramate (Topamax) 25 mg PO BID [facility] Assessment/Plan Comment:: discharge with recommendations per psychiatry and behavioral health.
--- NOTE | 2018-12-14 16:22 | PCM.DCSUM1 ---
Discharge Summary - Hospital Course Diagnosis: Stroke: No - Discharge Data Discharge Date: 12/14/18 Discharge Disposition: Home, Self-Care 01 Condition: Good - Discharge Diagnosis/Problem(s) (1) Alcohol withdrawal SNOMED Code(s): 480640978 ICD Code: F10.239 - ALCOHOL DEPENDENCE WITH WITHDRAWAL, UNSPECIFIED Status : Acute Current Visit: No - Patient Summary/Data Consults: Consultations 12/13/18 20:30 Consult to Case Management/Validation Manager [CONS] Routine Consult to Physician [CONS] Routine Consult to Spiritual Care [CONS] Routine 12/13/18 20:33 Consult for Substance Abuse [CONS] Routine - Discharge Plan *PRESCRIPTION DRUG MONITORING PROGRAM REVIEWED*: Not Applicable *COPY OF PRESCRIPTION DRUG MONITORING REPORT IN PATIENT KALIN: Not Applicable Home Medications: Home Meds . [No Known Home Meds] 02/26/18 [History] Patient Handouts: Addiction and the Family, Alcoholic Liver Disease, Steps to Quit Smoking Referrals: PCP,None [Primary Care Provider] - - Discharge Summary/Plan Comment DC Time >30 min.: No - Patient Data Vitals - Most Recent: Last Vital Signs Temp 98.2 F 12/14/18 12:00 Pulse 85 12/14/18 12:00 Resp 17 12/14/18 12:00 BP 118/85 12/14/18 12:00 Pulse Ox 96 12/14/18 12:00 Weight - Most Recent: 173 lb 14.4 oz I&O - Last 24 hours: Intake & Output 12/14/18 12/14/18 12/14/18 03:59 11:59 19:59 Intake Total 800 670 Output Total 350 700 200 Balance -350 100 470 Lab Results - Last 24 hrs: Laboratory Results - last 24 hr 12/13/18 12/13/18 12/13/18 Range/Units 19:15 19:15 19:28 WBC 4.71 (4.23-9.07) K/mm3 RBC 4.69 (4.63-6.08) M/mm3 Hgb 14.6 D (13.7-17.5) gm/L Hct 43.6 (40.1-51.0) % MCV 93.0 H (79.0-92.2) fl MCH 31.1 (25.7-32.2) pg MCHC 33.5 (32.2-35.5) g/dl RDW Std Deviation 43.8 (35.1-43.9) fL Plt Count 250 (163-337) K/mm3 MPV 8.8 L (9.4-12.3) fl Neut % (Auto) 37.7 (34.0-67.9) % Lymph % (Auto) 49.0 (21.8-53.1) % [place] % (Auto) 7.6 (5.3-12.2) % Eos % (Auto) 5.3 (0.8-7.0) Baso % (Auto) 0.4 (0.1-1.2) % Neut # (Auto) 1.77 L (1.78-5.38) K/mm3 Lymph # (Auto) 2.31 (1.32-3.57) K/mm3 [place] # (Auto) 0.36 (0.30-0.82) K/mm3 Eos # (Auto) 0.25 (0.04-0.54) K/mm3 Baso # (Auto) 0.02 (0.01-0.08) K/mm3 Sodium 143 (136-145) mEq/L Potassium 3.4 L (3.5-5.1) mEq/L Chloride 105 (98-107) mEq/L Carbon Dioxide 25 (21-32) mEq/L Anion Gap 16.4 H (5-15) BUN 11 (7-18) mg/dL Creatinine 1.0 (0.7-1.3) mg/dL Est Cr Clr Drug Dosing 89.36 mL/min Estimated GFR (MDRD) > 60 (>60) mL/min BUN/Creatinine Ratio 11.0 L (14-18) Glucose 153 H (74-106) mg/dL Calcium 8.8 (8.5-10.1) mg/dL Magnesium 2.1 (1.8-2.4) mg/dl Total Bilirubin 0.1 L (0.2-1.0) mg/dL AST 83 H (15-37) U/L ALT 88 H (16-63) U/L Alkaline Phosphatase 124 H (46-116) U/L Total Protein 7.5 (6.4-8.2) g/dl Albumin 3.8 (3.4-5.0) g/dl Globulin 3.7 gm/dL Albumin/Globulin Ratio 1.0 (1-2) Urine Opiates Screen Negative (YMTGAH=985) Ur Buprenorphine Scrn Negative (CUTOFF=10) Ur Oxycodone Screen Negative (RHG7CY=400) Urine Methadone Screen Negative (LIU9LZ=057) Ur Propoxyphene Screen Negative (TJQJTS=028) Ur Barbiturates Screen Negative (OFZJXG=792) Ur Tricyclics Screen Negative (YFUSNG=582) Ur Phencyclidine Scrn Negative (CUTOFF=25) Ur Amphetamine Screen Negative (SXDYVZ=741) U Methamphetamines Scrn Negative (WGMKGB=028) U Benzodiazepines Scrn Negative (UJUKDK=632) U Cocaine Metab Screen Negative (DRWISQ=496) U Marijuana (THC) Screen Negative (CUTOFF=50) Ethyl Alcohol 0.29 (0.00) gm% 12/14/18 12/14/18 Range/Units 05:33 05:33 WBC 4.08 L (4.23-9.07) K/mm3 RBC 4.11 L (4.63-6.08) M/mm3 Hgb 12.8 L D (13.7-17.5) gm/L Hct 39.2 L (40.1-51.0) % MCV 95.4 H (79.0-92.2) fl MCH 31.1 (25.7-32.2) pg MCHC 32.7 (32.2-35.5) g/dl RDW Std Deviation 45.3 H (35.1-43.9) fL Plt Count 225 (163-337) K/mm3 MPV 9.1 L (9.4-12.3) fl Neut % (Auto) 61.9 (34.0-67.9) % Lymph % (Auto) 26.7 (21.8-53.1) % [place] % (Auto) 6.6 (5.3-12.2) % Eos % (Auto) 4.4 (0.8-7.0) Baso % (Auto) 0.2 (0.1-1.2) % Neut # (Auto) 2.52 (1.78-5.38) K/mm3 Lymph # (Auto) 1.09 L (1.32-3.57) K/mm3 [place] # (Auto) 0.27 L (0.30-0.82) K/mm3 Eos # (Auto) 0.18 (0.04-0.54) K/mm3 Baso # (Auto) 0.01 (0.01-0.08) K/mm3 Sodium 139 (136-145) mEq/L Potassium 4.0 (3.5-5.1) mEq/L Chloride 104 (98-107) mEq/L Carbon Dioxide 26 (21-32) mEq/L Anion Gap 13.0 (5-15) BUN 11 (7-18) mg/dL Creatinine 1.0 (0.7-1.3) mg/dL Est Cr Clr Drug Dosing 89.36 mL/min Estimated GFR (MDRD) > 60 (>60) mL/min BUN/Creatinine Ratio 11.0 L (14-18) Glucose 117 H (74-106) mg/dL Calcium 8.8 (8.5-10.1) mg/dL Magnesium 1.6 L (1.8-2.4) mg/dl Total Bilirubin (0.2-1.0) mg/dL AST (15-37) U/L ALT (16-63) U/L Alkaline Phosphatase (46-116) U/L Total Protein (6.4-8.2) g/dl Albumin (3.4-5.0) g/dl Globulin gm/dL Albumin/Globulin Ratio (1-2) Urine Opiates Screen (RNHLCH=547) Ur Buprenorphine Scrn (CUTOFF=10) Ur Oxycodone Screen (CRV9VU=221) Urine Methadone Screen (JKI7JL=025) Ur Propoxyphene Screen (IPRYLS=893) Ur Barbiturates Screen (XVVZZF=530) Ur Tricyclics Screen (KXYSSR=698) Ur Phencyclidine Scrn (CUTOFF=25) Ur Amphetamine Screen (KWERWM=800) U Methamphetamines Scrn (HHHRBY=437) U Benzodiazepines Scrn (PNJLDW=669) U Cocaine Metab Screen (DLYIGK=959) U Marijuana (THC) Screen (CUTOFF=50) Ethyl Alcohol (0.00) gm% Med Orders - Current: Current Medications Folic Acid (Folic Acid) 1 mg PO DAILY IRAIS Stop: 12/16/18 09:01 Last Admin: 12/14/18 08:50 Dose: 1 mg Lorazepam (Ativan) 0 mg IV ASDIRECTED IRAIS; Protocol Miscellaneous Information (Remove Patch) 1 ea TRDERM Q24H IRAIS Nicotine (Habitrol) 14 mg TRDERM DAILY@2100 [facility] Ondansetron HCl (Zofran) 4 mg IVPUSH Q4H PRN PRN Reason: Nausea Last Admin: 12/14/18 09:51 Dose: 4 mg Pantoprazole Sodium (Protonix) 40 mg PO DAILY@0700 IRAIS Last Admin: 12/14/18 08:51 Dose: 40 mg Quetiapine Fumarate (Seroquel) 25 mg PO BEDTIME [facility] Thiamine HCl (Vitamin B-1) 100 mg PO DAILY [facility] Topiramate (Topamax) 25 mg PO BID [facility] Discontinued Medications Folic Acid (Folic Acid) 1 mg PO ONETIME ONE Stop: 12/13/18 19:01 Last Admin: 12/13/18 19:10 Dose: 1 mg Sodium Chloride (Normal Saline) 1,000 mls @ 999 mls/hr IV ONETIME ONE Stop: 12/13/18 19:47 Last Admin: 12/13/18 19:10 Dose: 999 mls/hr Thiamine HCl 100 mg/ Sodium (Chloride) 51 mls @ 100 mls/hr IV DAILY [facility] Magnesium Sulfate 2 gm/ Premix 50 mls @ 25 mls/hr IV ONETIME ONE Stop: 12/14/18 11:15 Last Admin: 12/14/18 09:32 Dose: 25 mls/hr Lorazepam (Ativan) 1 mg IVPUSH ONETIME ONE Stop: 12/13/18 18:48 Last Admin: 12/13/18 19:10 Dose: 1 mg Lorazepam (Ativan) 1 mg PO ONETIME ONE Stop: 12/13/18 22:02 Last Admin: 12/13/18 22:12 Dose: 1 mg Lorazepam (Ativan) 2 mg PO ONETIME ONE Stop: 12/14/18 12:51 Last Admin: 12/14/18 13:16 Dose: 2 mg Multivitamins (Thera) 1 each PO ONETIME ONE Stop: 12/13/18 18:49 Last Admin: 12/13/18 19:26 Dose: 1 each Multivitamins (Thera) 1 each PO ONETIME ONE Stop: 12/13/18 20:35 Last Admin: 12/13/18 21:42 Dose: 1 each Nicotine (Habitrol) 14 mg TRDERM DAILY [facility] Last Admin: 12/13/18 21:42 Dose: 14 mg Ondansetron HCl (Zofran) 4 mg IVPUSH ONETIME ONE Stop: 12/13/18 18:48 Last Admin: 12/13/18 19:11 Dose: 4 mg Pantoprazole Sodium (Protonix Iv) 40 mg IV ONETIME ONE Stop: 12/13/18 19:01 Last Admin: 12/13/18 19:10 Dose: 40 mg Pantoprazole Sodium (Protonix Iv) 40 mg IV DAILY [facility] Thiamine HCl (Vitamin B-1) 100 mg IM ONETIME ONE Stop: 12/13/18 18:49 Last Admin: 12/13/18 19:11 Dose: 100 mg Thiamine HCl (Vitamin B-1) 100 mg IVPUSH DAILY [facility] Last Admin: 12/14/18 08:51 Dose: 100 mg
[2018-12-14] MEDS ORDERED: Nicotine 14 MG/24 Hr Patch TRDERM SCH (21:00)
[2018-12-14] MEDS ORDERED: QUEtiapine 25 MG Tab PO SCH (21:00)
[2018-12-14] MEDS ORDERED: Topiramate 25 MG Tab PO SCH (21:00)
[2018-12-15] MEDS ORDERED: Thiamine 100 MG Tab PO SCH (09:00)
--- NOTE | 2018-12-17 08:29 | CONS ---
CONSULTING PHYSICIAN: Alberto Rodríguez MD DATE OF CONSULTATION: 12/14/2018 This is a 60-minute inpatient telemedicine event. Site where the services are provided is [facility] in [place], [place]. Site where the services are provided from our office is in [facility]. Length of service for this 60-minute inpatient telemedicine event is 60 minutes. IDENTIFICATION: The patient is a 48-year-old male, who is admitted to the MICU at [facility] in [place], [place]. He is seen for psychiatric consultation per the request of Dr. Mathews and his inpatient medical treatment team. CHIEF COMPLAINT: "I want to quit drinking. The last time I tried it I started shaking really bad." HISTORY OF PRESENT ILLNESS: The patient is a 48-year-old male, who was admitted on 12/13/2018 to the MICU with severe symptoms of alcohol withdrawal. The patient states he has been drinking heavily for quite some time now. He states he has most recently been using "about 5 [employer] and 9 to 10 shots a day" of hard liquor. He states that he has tried to quit in the past because he is tired of living the type of life he has been leading being dependent on alcohol, but every time he tries to do it, "I get scared because it is so bad, I just start to throw up." The patient is stating that is why he came in to the hospital to get sober. He states his longest sobriety was for about 2 months back in 2018. At this point in time, he is denying that he is suicidal or homicidal. He denies any psychotic, delusional, or paranoid symptoms either prior to his alcohol use or as a component of his withdrawal. He really denies any kind of psychiatric issue and states that his primary issue is alcohol dependence, and he feels that if he could just get sober and stay away from the alcohol, his quality of life would be that much better. He is depressed in the sense that he is addicted to alcohol, but denies any need for psychiatric intervention at this point in time, but rather would just again like to get help for obtaining sobriety. MEDICATIONS AT THE TIME OF PRESENTATION: None. ALLERGIES: No known drug allergies. PAST MEDICAL HISTORY: The patient denies. REVIEW OF SYSTEMS: Aside from neuro, all other major organ systems are negative at this point in time for acute difficulties or complications. FAMILY PSYCHIATRIC AND CD HISTORY: The patient reports father may have had a history of alcoholism. PAST PSYCHIATRIC AND CD HISTORY: The patient denies any previous psychiatric hospitalizations or chemical dependency treatments. He states his longest sobriety was for 2 months in 2018. He has gone to AA in the past with some success. He also notes that he has had detox episodes in the past. He has had DWIs in the past, but "that is all taken care of" at this point in time. He denies any previous suicide attempts or self- injurious behavior history and denies any prior psychiatric medication history. SOCIAL HISTORY: The patient was born in [place], [place], and raised in [place], [place]. He has 1 fraternal twin brother and 1 sister. The patient's parents were throughout his childhood and adolescence. His highest level of education is a GED. He has been twice. He is living in [place] with his second . His works at [email or web address]. He works at [employer]. He has 2 children from 2 previous relationships aside from either of his marriages. He denies any prior service or any current legal difficulties. He is a [employer] in terms of his jayce formation. He enjoys bowling and playing frisbee golf. MENTAL STATUS EXAMINATION: The patient is a 48-year-old soft-spoken white male, in no apparent distress. Speech is of regular rate and rhythm. The patient is cognitively oriented x3. Psychomotor activity is within normal limits. There are no abnormal motor movements or tics observed. Gait and station are not observed. This patient is lying in bed for the purposes of the telemedicine consult. Mood is depressed and tired as well as a little anxious. Affect is consistent with stated mood, but cooperative overall for the purposes of the telemedicine consult. There is no behavioral or stated evidence of acute suicidal or homicidal ideation or acute psychotic, delusional, or paranoid symptoms. Thought processes are organized. There are no acute manic symptoms or loose associations evident. Judgment and insight appear unimpaired at this point in time. Motivation for help is good. VITALS: 147/88, 89, 94, and 98.7 degrees. IMPRESSION: Ivor I: 1. Alcohol dependence, F10.20. 2. Anxiety disorder, not otherwise specified, F41.9. 3. Depression, not otherwise specified, F32.9. Ivor II: None. Ivor III: Signs and symptoms of alcohol withdrawal. Ivor IV: Severe. Ivor V: 55. PLAN: 1. Sobriety. 2. Folic acid supplementation. 3. Thiamine supplementation. 4. Ativan per [facility] protocol. 5. Topamax 25 mg b.i.d. for seizure prophylaxis while the patient remains on the unit. 6. Seroquel 25 mg at bedtime for clarity of thought and prevention of any psychotic symptoms while the patient remains on the unit. 7. AA rep to visit the patient while in the unit. 8. Pastoral guidance. 9. CD eval to assess whether the patient needs outpatient or inpatient CD when he is medically stabilized. 10.We will continue to follow up with the patient on an as-needed basis while he remains on the inpatient MICU. 11.We will follow up with the patient sooner if any complications in the interim. 12.Would recommend outpatient psychiatric services once the patient is medically stabilized if there are any breakthrough symptoms of depression or anxiety that are remaining after the patient is sober for a period of time. 13.Crisis plan is in place. SETH /[id number]
== END 2018-12-14 17:29 | disposition home or self-care (01) | DRG 897 ==
LOC: JD.ED 18:09 → JD.ICU 20:27
PROVIDERS: ADMIT Internal Medicine; ATTEND Internal Medicine
PROC: HZ2ZZZZ Detoxification Services for Substance Abuse Treatment (ICD-10-PCS; principal; 2018-12-13)
DX: F10.239 Alcohol dependence with withdrawal, unspecified (principal); K92.0 Hematemesis; F17.210 Nicotine dependence, cigarettes, uncomplicated; R00.0 Tachycardia, unspecified; Y90.8 Blood alcohol level of 240 mg/100 ml or more
CPT/HCPCS: 36415; 80048; 80053; 80306; 83735; 85025; 96361; 96372; 96374; 96375; 99285-25; A9270-GY; C9113; G0480; J2060; J2405; J3411; J3475; J7040